=== PATIENT | female | born 1930 | race Caucasian/White ===

== ENCOUNTER 2018-07-27 15:15 | Emergency (ER) | payer MEDICARE, OTHER ==
[~2018-07-27 15:15] MED LIST: BETIMOL5 M1 OU; COMPLETE ALLERG25 MG PO; DIGOXIN125 MCG PO; DILTIAZEM ER240 MG PO; LEVOTHYROXINE125 MCG PO; SIMVASTATIN20 MG PO; SYNTHROID100 MCG PO; TOPROL XL25 MG PO; WARFARIN SODIUM1 MG PO; WARFARIN SODIUM5 MG PO
--- NOTE | 2018-07-28 16:08 | EKG ---
[facility] [address] [facility] [place], [place] [address] Signed Atrial fibrillation Right bundle branch block Abnormal ECG No previous ECGs available Confirmed by SHANNA SAAVEDRA DO ([id number]) on 07/28/2018 4:07:56 PM Electronically Signed By: SHANNA SAAVEDRA DO 07/28/18 1608 PATIENT NAME: JUWAN GOLDMANKAR WHITE Electrocardiogram DATE OF : 32 PHYSICIAN: SHANNA SAAVEDRA DO REPORT #: [id number] REPORT IS CONFIDENTIAL AND NOT TO BE RELEASED WITHOUT AUTHORIZATION
== END 2018-07-27 17:30 | disposition home or self-care (01) ==
LOC: ED 15:15
PROC: 0XQSXZZ Repair Right Ring Finger, External Approach (ICD-10-PCS; principal; 2018-07-27)
DX: S05.11XA Contusion of eyeball and orbital tissues, right eye, initial encounter (principal); S63.501A Unspecified sprain of right wrist, initial encounter; S66.911A Strain of unspecified muscle, fascia and tendon at wrist and hand level, right hand, initial encounter; Z79.01 Long term (current) use of anticoagulants; Z79.899 Other long term (current) drug therapy; W22.8XXA Striking against or struck by other objects, initial encounter
CPT/HCPCS: 12001; 70450; 73090; 80053; 82150; 82550; 83690; 85025; 85610; 85730; 86850; 86900; 86901; 93005; 93010; 99284-25; G0480

== ENCOUNTER 2018-07-28 17:59 | Emergency (ER) | payer MEDICARE, OTHER ==
[~2018-07-28] VITALS: Ht 157.5 cm; Wt 74.8 kg
--- OUTSIDE RECORDS SUMMARY | 2018-07-28 18:02 | XMS ---
PreManage Notification: [employer] Events No recent Security Events currently on file CRITERIA MET - [facility] - 2 Visits in 30 Days CARE PROVIDERS eVe Jonas Current PAC PHONE: Unknown Deepak has no Care Guidelines for this patient. EMilena VISIT COUNT (12 MO.) 2 [facility] TOTAL 2 NOTE: Visits indicate total known visits. ED/UCC VISIT TRACKING (12 MO.) 07/28/2018 17:59 [facility] TYPE: Emergency COMPLAINT: - FALL,HEAD INJURY 07/27/2018 15:15 [facility] TYPE: Emergency COMPLAINT: - FALL INPATIENT VISIT TRACKING (12 MO.) No inpatient visits to display in this time frame [email or web address]
== END 2018-07-28 19:08 | disposition home or self-care (01) ==
LOC: ED 17:59
DX: S60.041A Contusion of right ring finger without damage to nail, initial encounter (principal); W18.30XA Fall on same level, unspecified, initial encounter; I10 Essential (primary) hypertension; J44.9 Chronic obstructive pulmonary disease, unspecified; F17.220 Nicotine dependence, chewing tobacco, uncomplicated; Z88.7 Allergy status to serum and vaccine; Z79.899 Other long term (current) drug therapy; Z79.01 Long term (current) use of anticoagulants
CPT/HCPCS: 73140; 99283

== ENCOUNTER 2021-06-27 07:58 | Inpatient (IN) | payer MEDICARE, OTHER ==
[~2021-06-27] VITALS: Ht 157.5 cm; Wt 72.5 kg
[~2021-06-27 07:58] MED LIST changes: +MULTI VITAMIN1 EACH PO; -SYNTHROID100 MCG PO; +SYNTHROID112 MCG PO; +VITAMIN C500 M5 PO
--- NOTE | 2021-06-27 11:25 | NUR ---
89 YEAR OLD FEMALE PATIENT ADMITTED TO CCU UNDER DR. STRINGER VIA STRETCHER WITH DX OF CHF. PATIENT HAS BEEN GETTING MORE SHORT OF BREATH OVER THE LAST SEVERAL DAYS. LEGS ARE EDEMATOUS BILAT. DENIES PAIN. WAS ON BIPAP IN ER NOW ON O2 1 LITER. DENIES SHORTNESS OF BREATH NOW. WALKED FROM STRETCHER TO BED ON ADMIT. ADMISSION PROCESS STARTED.
[2021-06-27] MEDS ORDERED: METOPROLOL SUCC50 MG PO (11:58)
[2021-06-27] MEDS ORDERED: TIMOLOL MALEATE5 M2 OU (11:59)
--- NOTE | 2021-06-27 12:30 | NUR ---
SITTING AT BEDSIDE FOR LUNCH. HAS BEEN TO COMMODE TO VOID CLEAR YELLOW URINE.
--- NOTE | 2021-06-27 13:40 | NUR ---
IMAGING AT BEDSIDE NOW FOR ECHO.
--- NOTE | 2021-06-27 16:00 | NUR ---
NAPPING, WILL DO ASSESSMENT WHEN WAKES.
--- NOTE | 2021-06-27 16:33 | NUR ---
Medications reconciled using pharmacy records and patient interview
--- NOTE | 2021-06-27 17:00 | NUR ---
ASSESSMENT DONE. HAS PAIN IN LEFT HAND AND RIGHT SHOULDER. GENERALIZED BODY ACHE.
--- NOTE | 2021-06-27 17:20 | NUR ---
AFTER TAKING FEW BITES OF DINNER. LUÍS HAVING SEVERE COUGHING SPELL. PATIENT STATES THIS HAS BEEN HAPPENING AT HOME FOR SOMETIME.
--- NOTE | 2021-06-27 18:30 | NUR ---
TYLENOL 650 MG PO GIVEN FOR PAIN.
--- NOTE | 2021-06-27 18:50 | NUR ---
LOPRESSOR 5 MG IV GIVEN FOR HR >130. PATIENT HAS BEEN OUT STANDING AT BEDSIDE DUE TO DIFFICULTY SWALLOWING.
--- NOTE | 2021-06-27 19:00 | NUR ---
SITTING IN CHAIR STATES SHE FEELS BETTER DUE ABOUT HER SWALLOWING, COUGHING PROBLEMS. PATEINT HAS BEEN HAVING PROBLEMS WITH THIS SINCE SHE BEGAN EATING THIS EVENING. REPORT TO NEXT SHIFT.
--- NOTE | 2021-06-27 20:52 | NUR ---
Pt sitting up in bed up in bed awake and alert on room air. Pt denies shortness of breath at this time but reports nausea and a cough at this time. Vitals taken and PRN robitussin and zofran administered (see mar). pt assessment completed afterwards. pt alert and oriented x 3, pt lungs coarse throughout, pt denies shortness of breath but states she has a cough and reports that she has been having regurgitation/vomitting at home for 3 days. bowel tones active when assessed, no pain when palpated. Radial and pedal pulses strong, pt reports baseline numbness/tingling on her left hand. +1 edema noted in legs bilaterally. Pt reports no needs after assessment and is now resting in bed in watching tv. Bed in lowest position, call light in reach, will continue plan of care.
--- NOTE | 2021-06-27 21:35 | NUR ---
Pt used call light, pt stated she needed to void. pt able to stand up with minimal assistance and pivot to the bedside commode to void. Pt able to get back into bed without assistnace. Pt noted to desat to 86-88% while standing up but denied shortness of breath. Pt now resting in bed, spo2 96% on room air, call light in reach, bed in lowest position. pt reports no further needs at this time.
--- NOTE | 2021-06-27 22:56 | EKG ---
[facility] [address] [facility] [place] [address] Signed Ventricular-paced rhythm with occasional premature ventricular complexes Abnormal ECG When compared with ECG of 27-JUL-2018 15:37, Electronic ventricular pacemaker has replaced Atrial fibrillation Confirmed by NABIL STRINGER MD ([id number]) on 06/27/2021 10:56:23 PM Electronically Signed By: NABIL STRINGER MD 06/27/21 2256 PATIENT NAME: RYLEEHELENEALLEN Electrocardiogram DATE OF : 32 PHYSICIAN: NABIL TSRINGER MD REPORT #: [id number] REPORT IS CONFIDENTIAL AND NOT TO BE RELEASED WITHOUT AUTHORIZATION
--- NOTE | 2021-06-27 23:35 | NUR ---
CALL LIGHT USED, PT AWAKE AND ALERT IN BED ON ROOM AIR. PT REPORTED HAVING A HEADACHE AND BACK PAIN 07/20. PT REQUESTED PRN PAIN MEDICATION. PT NEEDED TO VOID FIRST AND WAS ABLE TO PIVOT TO THE BSC WITHOUT ASSISTANCE TO VOID. PT BACK IN BED AFTERWARDS. VITALS TAKEN (SEE CHART) AND PRN TYLENOL ADMINISTERED (SEE MAR). ASSESSMENT THEN COMPLETED (SEE CHART). LUNGS COARSE IN UPPER LOBES AND DIMINSISHED IN THE BASES. PT DENIES SHORTNESS OF BREATH WHEN ASKED. PT REPORTS NO FURTHER NEEDS AT THIS TIME, WARM BLANKET PROVIDED. PT STATES SHE WILL ATTEMPT TO GO TO SLEEP. CALL LIGHT IN REACH, BED IN LOWEST POSITION, WILL CONTINUE PLAN OF CARE.
--- NOTE | 2021-06-28 01:05 | NUR ---
PT USED CALL LIGHT PT LAYING IN BED AWAKE AND ALERT. PT STATED SHE COULDNT SLEEP AND FELT IF SHE WAS "FULL OF ENERGY AND NEEDED TO RUN". PT ASKED TO STAND AT THE BEDSIDE FOR A WHILE. PT ASSISTED UP AND STOOD FOR A FEW MINUTES STATING IT HELPED. PT NOW SITTING AT THE SIDE OF THE BED, A WARM BLANKET WAS PROVIDED. PT STATED SHE WANTS TO SIT AT THE SIDE OF THE BED FOR A WHILE. CALL LIGHT IN REACH, PT REPORTS NO FURTHER NEEDS AT THIS TIME, WILL CONTINUE PLAN OF CARE.
--- NOTE | 2021-06-28 01:52 | NUR ---
PT AWAKE AND ALERT SITTING AT THE SIDE OF THE BED STILL. PT REQUESTED PRN COUGH MEDICATION FOR A COUGH. PRN COUGH MEDICATION ADMINISTERED (SEE MAR). PT THEN GOT BACK INTO BED AND IS NOW LAYING ON HER SIDE. PT PROVIDED WITH WARM BLANKETS AT THIS TIME. PT REPORTS NO FURTHER NEEDS WHEN ASKED AND IS NOW RESTING IN BED. CALL LIGHT IN REACH, BED IN LOWEST POSITION, WILL CONTINUE PLAN OF CARE.
--- NOTE | 2021-06-28 02:30 | NUR ---
PT LAYING IN BED RESTING. PT NOTED TO DESAT TO 86-88% WHILE RESTING. PT AWAKE AND DENIES SHORTNESS OF BREATH. PT PLACED ON 2L O2 NC, SPO2 NOW AT 96-98%. PT REPORTS NO NEEDS, WILL CONTINUE PLAN OF CARE.
--- NOTE | 2021-06-28 04:51 | NUR ---
PT USED CALL LIGHT AT THIS TIME. PT AWAKE AND ALERT IN BED ON 2L O2 NC, SPO2 95%. PT STATED SHE NEEDED TO USE THE BEDSIDE COMMODE TO VOID. PT ABLE TO STAND UP AND PIVOT TO THE BSC, VOID, AND GET BACK INTO BED WITHOUT ASSISTANCE. PT NOW RESTING IN BED. VITALS TAKEN AND ASSESSMENT COMPLETED (SEE CHART). PT REPORTS NO FURTHER NEEDS AFTERWARDS AND IS NOW RESTING BACK ON HER SIDE. WARM BLANKETS AND WATER PROVIDED. CALL LIGHT IN REACH, WILL CONTINUE PLAN OF CARE. PT ON 2L O2 NC, SPO2 99%.
--- NOTE | 2021-06-28 06:52 | NUR ---
PT LAYING IN BED AWAKE ON 2L O2 NC. SCHEDULED LEVOTHYROXINE ADMINISTERED AT THIS TIME (SEE MAR). PT REPORTS NO FURTHER NEEDS, WILL CONTINUE PLAN OF CARE.
--- NOTE | 2021-06-28 07:15 | NUR ---
SHIFT REPORT RECEIVED.
--- NOTE | 2021-06-28 09:15 | NUR ---
REPORT RECEIVED BY JONATHAN RN AND PT. ARRIVED VIA CHAIR. SHE IS ALERT AND ORIENTED. ON TELEMETRY. DISCUSSED SAFETY AND POC. DENIES FURTHER NEEDS. LEFT RESTING WITH CALL LIGHT IN REACH.
--- NOTE | 2021-06-28 09:30 | NUR ---
ASSESSMENT COMPLETED. SCHEDULED MEDS PROVIDED. PT REPORTS 6/10 BACK PAIN, PRN PAIN MED PROVIDED. GCS 15, A&O X4. LUNGS COARSE IN ALL LOBES. ABD SOFT, NONTENDER, BOWEL TONES ACTIVE. CMS INTACT IN ALL EXCEPTS LEFT HAND FINGERS HAVE NUMBNESS AND TINGLING. SCAB ON RIGHT KNEE NOTED. IV WNL, FLUSHED WELL. HR 104, SINUS TACH. SPO2 96% ON RA. COFFEE PROVIDED. NO OTHER NEEDS. CALL LIGHT IN REACH.
--- NOTE | 2021-06-28 09:35 | NUR ---
PT MOVED TO MS RM 124.
--- NOTE | 2021-06-28 09:58 | NUR ---
Provided pt with soap and wash cloth to preform facial hygiene. Provided pt with toothbrush and toothpaste to preform oral hygiene. Pt preformed ADLs without assistance.
--- NOTE | 2021-06-28 11:40 | NUR ---
ASSISTED PT TO RESTROOM, STANDBY ASSIST. PT BACK TO RECLINER, WATCHING TV. DENIES NEEDS AT THIS TIME. INSTRUCTED TO USE CALL LIGHT FOR ASSISTANCE, WITHIN REACH.
--- NOTE | 2021-06-28 13:45 | NUR ---
IV IS LEAKING AND IS A FIELD START. IV REMOVED WITH CATH INTACT AND WNL. NEW IV STARTED WITH 2 ATTEMPTS. 20G L WRIST. PT. ASSISTED WITH REPOSITIONING. SHE C/O OF CHRONIC ACHES AND ASKS FOR PAIN MED WHEN AVAILABLE. PT. LEFT RESTING WITH CHAIR ALARM ON AND CALL LIGHT IN REACH.
--- NOTE | 2021-06-28 14:52 | NUR ---
PT C/0 GENERALIZED PAIN, TYLENOL GIVEN. DENIES FURTHER NEEDS AT THIS TIME. CALL LIGHT WITHIN REACH.
--- NOTE | 2021-06-28 19:50 | NUR ---
IN TO ASSIST PT WITH TOILETING NEEDS, SBA-INDPT TO BATHROOM, PT BRUSHED HER OWN TEETH, BACK TO THE CHAIR, PT INFORMED THIS GUEST RELATION OFFICER SHE IS AWAITING HER MEDS FROM THE RN, WILL SEND RN TO SEE PT, NO FURTHER NEEDS AT THIS TIME
--- NOTE | 2021-06-28 22:37 | NUR ---
PT CALLED REQUESTING COUGH MEDICATION, SHE COUGHED UP SOME YELLOW/UMANZOR PHLEM. WARM BLANKET PROVIDED. PT REPORTS BACK PAIN, OFFERED EGG CRATE MATTRESS TOP PT DECLINES AT THIS TIME. CALL LIGHT IS CLOSE.
--- NOTE | 2021-06-28 23:00 | NUR ---
PT HAS BEEN VERY RESTLESS AND IS HAVING DIFFICULTIY GETTING COMFORTABLE IN THE BED D/T BACK ISSUES. OFFERED MULTIPLE TIMES TO CALL PHYSICIAN FOR ANTIANXIETY OR SLEEP MED BUT PT REFUSED STATING SHE DOES NOT WANT TO TAKE ANY MEDICATION TO TRY TO HELP HER GET TO SLEEP. SPENT A SIGNIFICANT AMOUNT OF TIME ADJUSTING PILLOWS AROUND PT AND LISTENING TO HER CONCERNS. CALL LIGHT WITHIN REACH.
--- NOTE | 2021-06-29 00:39 | NUR ---
IN ROOM TO ASSIST PT TO RESTROOM, SHE VOIDED 100MLS AND SOME URINE MISSED THE HAT. PT CONTINUES TO COUGH UP PHE. BED ALARM IS ON AMD CALL LIGHT IS CLOSE.
--- NOTE | 2021-06-29 01:55 | NUR ---
IN TO ASSIST PT WITH TOILETING NEEDS, SBA TO TOILET AND THEN UP TO THE CHAIR, LEGS ELEVATED, ICE WATER PROVIDED, NO FURTHER NEEDS
--- NOTE | 2021-06-29 02:53 | NUR ---
appears asleep in recliner. No distress noted.
--- NOTE | 2021-06-29 07:25 | NUR ---
SPENT THE LAST SEVERAL HOURS UP IN THE CHAIR. TYLENOL GIVEN FOR C/O PAIN TO NECK AND BACK. ANOTHER DOSE OF COUGH MED GIVEN. CALL LIGHT WITHIN REACH
--- NOTE | 2021-06-29 07:50 | NUR ---
Pt ambulated to the bathroom with standby assist. Pt voided urine. Provided pt with wash cloth and soap to preform facial hygiene at the sink.
--- NOTE | 2021-06-29 08:22 | NUR ---
JACOBO ASSESSMENT COMPLETE. PT AWAKE IN RECLINER. MORNING MEDICATIONS GIVEN. PT DENIES NEEDS AT THIS TIME. CALL LIGHT WITHIN REACH.
--- NOTE | 2021-06-29 11:02 | NUR ---
PT AMBULATING UNIT WITH LIFE SKILLS COACH. HEART RATE 100-110'S. DENIES CHEST DISCOMFORT, DIZZINESS OR LIGHT HEADEDNESS. AMBULATED UNIT x3. BACK TO ROOM IN RECLINER. CALL LIGHT WITHIN REACH.
--- NOTE | 2021-06-29 12:40 | NUR ---
PT SITTING IN RECLINER HAVING DINNER, DENIES NEEDS AT THIS TIME. CALL LIGHT WITHIN REACH.
--- NOTE | 2021-06-29 14:21 | NUR ---
PT SITTING IN CHAIR, STATES SHE FEELS "UNCOMFORTABLE AND HOT" OFFERED ICE WATER, TURNED HEAT DOWN IN ROOM. PT DENIES FURTHER NEEDS AT THIS TIME. CALL LIGHT WITHIN REACH.
--- NOTE | 2021-06-29 16:22 | NUR ---
PT EXPRESSED FRUSTRATION WITH MEDICATION CHANGES AND THAT SHE DID NOT UNDERSTAND CHANGES, PT APPEARED VERY UPSET. EXPLAINED MEDICATION CHANGES, CURRENT ILLNESS AND LAB VALUES. PT VERBALIZES SOME UNDERSTANDING AT THIS TIME AND STATES FEELING LESS FRUSTRATED. DENIES FURTHER NEEDS AT THIS TIME. CALL LIGHT WITHIN REACH.
--- NOTE | 2021-06-29 17:48 | NUR ---
CLARIFIED WITH DR ESPINOSA HYPERTONIC SALINE SHOULD RUN AT 25MLS/HR UNTIL 2029, BMP LAB DRAW AT 2100.
--- NOTE | 2021-06-29 18:38 | NUR ---
PT SITTING IN CHAIR, REFUSES TO EAT DINNER AT THIS TIME. DENIES ANY NEEDS AT THIS TIME. CALL LIGHT WITHIN REACH.
--- NOTE | 2021-06-30 01:41 | NUR ---
UP TO BR TO HAVE A BM. CURRENTLY SITTING ON EDGE OF BED. DISCUSSING PT NEEDS.
--- NOTE | 2021-06-30 05:22 | NUR ---
NEW IV STARTED IN LEFT FOREARM. FLUID INFUSING. pt SITTING IN THE CHAIR. CALL LIGHT WITHIN REACH.
--- NOTE | 2021-06-30 06:14 | NUR ---
HAS NOT SLEPT WELL THIS SHIFT. DIFFICULT TO GET COMFORTABLE. DOES NOT LIKE THE BED AND ALSO EXPERIENCES CHRONIC PAIN TO BACK, NECK, AND LH AND WRIST. FELT BLOATED AT THE BEGINNING OF THE SHIFT. THAT HAS SINCE RESOLVED AND SHE HAS HAD MULTIPLE LOOSE BM's. HR HAS BEEN IN THE 70'S FOR THE LAST SEVERAL HOURS.
--- NOTE | 2021-06-30 08:00 | NUR ---
Report received from energy infrastructure engineer RN. Pt resting in chair at bedside with call light at hand and appears comfortable. No distress noted. Will cont to monitor.
--- NOTE | 2021-06-30 08:15 | NUR ---
PT UP TO BR, SBA AND BACK TO CHAIR. BREAKFAST PROVIDED. NO OTHER NEEDS AT THIS TIME. CALL LIGHT IN REACH.
--- NOTE | 2021-06-30 10:00 | NUR ---
Pt alert and oriented. Ambulating to BR with SBA. Uses call light appropriately. C/O shoulder pain- see emar for PRNs. New orders received. Tele D/Cd. Tolerating iv fluids. Call light within reach. Will cont to monitor.
--- NOTE | 2021-06-30 13:59 | NUR ---
Pt is resting in her chair at bedside after getting up to the BR with SBA. Appears comfortable at this time. Tolerating iv fluids as ordered. Call light within reach. VSS. Will cont to monitor.
--- NOTE | 2021-06-30 15:28 | NUR ---
SCHEDULED MED PROVIDED. NO OTHER NEEDS AT THIS TIME. CALL LIGHT IN REACH.
--- NOTE | 2021-06-30 16:51 | NUR ---
Pt up to BR with SBA. VSS. Pt remains on RA with no resp distress noted. C/O cough; prn administered- see emar for admin info. Denies pain at this time. Verbalizes needs appropriately. Call light within reach. Will cont to monitor.
--- NOTE | 2021-06-30 18:55 | NUR ---
speech language assistant relayed message to this RN that lab was unable to obtain scheduled labs and asked this RN to draw labs. Labs drawn and tubed to lab. Call light within reach. Will cont to monitor.
--- NOTE | 2021-06-30 19:34 | NUR ---
Patient sitting up in chair watching tv, no distress. IV site patent, fluids infusing per provider order. Patient denies discomfort and or needs at this time. Personal supplies and call light within reach.
--- NOTE | 2021-06-30 20:03 | NUR ---
Updated board. Patient sitting up in chair on the phone, no notable distress. Call light within reach.
--- NOTE | 2021-06-30 20:32 | NUR ---
Tylenol 650mg po admin for reports of 5/10 right shoulder pain. Patient reports pain is chronic from a fall last year.
--- NOTE | 2021-06-30 22:49 | NUR ---
Patient in bed resting, no distress. Patient is on room air, respirations even and non labored. Call light within reach.
--- NOTE | 2021-06-30 23:30 | NUR ---
Rolando CH admin for reports of cough.
--- NOTE | 2021-07-01 01:35 | NUR ---
Patient in bed resting, respirations are even and non labored. No needs at this time. Call light within reach.
--- NOTE | 2021-07-01 02:26 | NUR ---
Tylenol 650mg po and nicorette lozenge admin for pt request.
--- NOTE | 2021-07-01 07:12 | NUR ---
REPORT RECEIVED FROM ALYSHA LEY. PT RESTING IN BED WITH HEAD OF BED ELEVATED TO 30 DEGREES. PT REPORTS RIGHT SHOULDER PAIN THAT IS "NOT THAT BAD" RATES PAIN AT 3/10 AND DENIES NEED FOR ADDITIONAL PAIN MEDICATION AT THIS TIME. PT REPORTS NICOTENE CRAVINGS. NO ADDITIONAL REQUESTS OR COMPLAINTS. VITAL SIGNS STABLE. CALL LIGHT WITHIN REACH. BED RAILS UP.
--- NOTE | 2021-07-01 07:29 | NUR ---
MORNING ASSESSMENT AND MEDICATIONS DUE. PT CALL LIGHT ON. PT REQUESTS ASSISTANCE UP TO THE RESTROOM. STAND BY ASSIST UP TO RESTROOM. PT VOIDS 200ML CLEAR YELLOW URINE AND PERFORMS SELF VENKAT CARE. PT UP TO SKIN FOR MORNING CARES. PT BRUSHES TEETH, WASHES FACE/HANDS, SKIN, AND DOES OTHER CARES INDEPENDANTLY. LINENS CHANGED. PT UP TO CHAIR FOR BREAKFAST. PT CONTINUES TO REPORTS 3/10 PAIN IN RIGHT SHOULDER/BACK. PT ALERT AND ORIENTED TO ALL AND RESPONDIGN TO QUESTIONS APPROPRIATLY. LUNG SOUDNS CORSE, CLEARS WITH COUGH TO CLEAR LUNG SOUNDS. PT TOELRATING ROOM AIR. RR INCRASES TO 20 WITH ACTIVITY. COUGH CONTINUES WITH CULLEN SPUTUM. HORSE VOICE NOTED, PT ATTRIBUTES TO SMOKING. FAINT PULSES NOTED TO BLE, DISCOLORATION NOTED WELL, PT ATTRIBUTES TO "POOR CIRCULATION." PT REPORTS EDEMA TO BLE IS "SO MUCH BETTER THAN BEFORE. i COULDN'T GET ANY SHOES ON BEFORE AND NOW THEY LOOK FINE." +1 PITTING EDEMA NOTED TO BLE AT THIS TIME, SOCK IMPRENTS SEEN. BOWEL TONES ACTIVE. PT REPORTS DIARRHEA YESTERDAY AND DECLINES BOWEL MEDICAITONS. BOWEL TONES ACTIVE. LARGE PURPLE AREAS NTOED TO BACK OF LEGS, PT REPORTS THIS IS "POOR CIRCULATION" NOT BURSINING. PT REMAINS UP TO CHAIR. NO ADDITIONAL NEEDS AT THSI TIME. CALL LIGHT WITHIN REACH.
--- NOTE | 2021-07-01 08:56 | NUR ---
THIS RN TO ROOM TO CHECK ONPT. PT REMAINS UP TO CHAIR, EATING BREAKFAST. PT DENIES REQUESTS OR COMPLAINTS OR FEELINGS OF SHORTNESS OF BREATH. PT ENCORUAGED TO CALL IF SHE NEEDS ANYTHING. CALL LIGHT WITHIN REACH. CHAIR ALARM ON.
--- NOTE | 2021-07-01 09:28 | NUR ---
PATIENT IN CHAIR AFTER GOING TO BATHROOM. PATIENT GIVEN TYLENOL FOR 6/10 SHOULDER/BACK PAIN.
--- NOTE | 2021-07-01 09:56 | NUR ---
PT CALL LIGHT ON. PT REQUESTS ASSISTANCE UP TO THE RESTROOM. STAND BY ASSIST UP TO RESTROOM. PT VOIDS AND HAS SMALL LOOSE BOWEL MOVEMENT. PT PERFORMS SELF VENKAT CARE. STAND BY ASSIST BACK TO CHAIR. PT REPORTS PAIN IS IMPROVING, NOW 06/19. PT DENIES ADDITONAL REQUESTS OR COMPLAINTS. CALL ILT WITHIN REACH. CHAIR ALARM ON.
--- NOTE | 2021-07-01 11:32 | NUR ---
THIS RN TO ROOM TO CHECK ON PT. PT RESTING IN CHAIR TALKING WITH SON ON THE PHONE. PT AGITATED AND WANTING TO GO HOME. PT STATES "I JUST DON'T UNDERSTAND ANY OF THIS. HOW LONG IS IT GOING TO TAKE!?!" EDUCATION DONE WITH WITH PT REGARDING DIAGNOSIS AND PLAN OF CARE. PT VERBALIZES UNDERSTANDING AND STATES HER QUESTIONS HAVE BEEN ANSWERED. PT ASKED ABOUT HER PAIN AND STATES "STOP ASKING ME ABOUT THE PAIN, IT'S ALWAYS THE SAME. THE TYELNOL HELPS." PT RATES PAIN AT 5/10. NO ADDITIONAL NEEDS AT THIS TIME. CALL LIGHT WITHIN REACH. PT REMAINS UP TO CHAIR. PT REQUESTS SON BE CALLED AND UPDATED.
--- NOTE | 2021-07-01 11:50 | NUR ---
CALL PLACED TO PTS SON, VADIM. VADIM UPDATED ON PTS STATUS AND PLAN OF CARE. VADIM VERBALIZES UNDERSTANDING OF PLAN OF CARE AND STATES HIS QUESITONS HAVE BEEN ANSWERED. CALL FORWARED INTO PTS ROOM. PT TALKING TO SON ON PHONE. NO ADDITIONAL NEEDS. CALL LIGHT WITHIN REACH.
--- NOTE | 2021-07-01 12:24 | NUR ---
THIS RN TO ROOM TO CHECK ON PT. PT CONTINUES TO BE AGITATED STATING "I JUST NEED TO GO OUT AND SMOKE OR SOMETHING, I CAN'T STAY HERE." SARAHI COREAS PROVIDED. PT UP TO SUBWAY CAR REPAIRER ROOM. DIFFERENT LUNCH ORDER PLACED PER PT PREFERENCE. DELIVERED. PT BACK TO CHAIR AND EATING LUNCH. PT SEEMS TO CALM. NO ADDITONAL REQUESTS OR COMPLAINTS. CALL LIGHT WITHIN REACH. CHAIR ALARM ON.
--- NOTE | 2021-07-01 13:26 | NUR ---
AFTERNOON ASSESSMENT DUE. THIS RN TO ROOM. IV PUMP ALARMING, IV FLUID BAG COMPLETE. NEW IV FLUID BAG HUNG. PT REPORTS /10 PAIN IN RIGHT SHOUDER BLADE. STATING "RIGHT NOW IT FEELS PRETTY GOOD." PT DENIES NEEDS FOR ADDITIONAL PAIN MEDICATION. HEAT PACK OFFERED, DECLINED. PT REMAINS ALERT AND ORIENTED TO ALL. PT REMAINS STAND BY ASSIT, IMPULSIVE BUT GENERALLY STEADY ON FEET. PT LESS AXIOUS AT THIS TIME. PT REPORTS "I HAVE THE LOZANGE THING YOU GAVE ME IN MY CHEEK." PT RPEORTS NICOTENE IS HELPING. CORSE UPPER LUNG SOUNDS NOTED, CLEARS SOMEWHAT WITH COUGH.CULLEN SPUTUM CONTINUES. EDEMA UNCHANGED. DIARRHEA CONTINUES. BOWEL TONES HYPERACTIVE, LOOSE AND BROWN. BRUISES UNCHANGED TO BACK OF LEGS. FALL PRECAUTIONS REVIEWED WITH PT. PT VERBALIZES UNDERSTANDING AND STATES SHE WILL CALL WHEN GETTING UP. NO ADDITONAL NEEDS AT THIS TIME. CALL LIGHT WITHIN REACH.
--- NOTE | 2021-07-01 15:34 | NUR ---
THIS RN TO ROOM WITH MD FOR ROUNDS. PT REMAINS UP TO CHAIR. PT IS VERY AGITATED AT THIS TIME AND ANGRY ABOUT SITUATION. PT STATES SHE WAS COMFORTABLY RESTING IN CHAIR WHEN SHE HAD TO PEE AND NOW SHE CANNOT GET COMFORTABLE. PT FIXATED ON THIS ISSUE AND UNABLE TO MOVE ON FROM SUBJECT. PT DECLINES ALL HELP WITH GETTING COMFORTABLE. PLAN OF CARE REVIEWED WITH PT BY MD. PT CONTINUES TO FIXATE ON PREVIOUS SITUATION AND IS VERY AGIATED WITH ANY ATTEMPT TO ASSIST PT. EDISON COREAS OFFERED AND ACCEPTED. PT REPORTS 5/10 BACK AND SHOULDER PAIN. SEE MAR FOR MEDICATION GIVEN. NO ADDITONAL NEEDS AT THIS TIME. PT CONTINUES TRYING TO POSITION SELF IN CHAIR, DECLINES ALL ATTEMPTS TO HELP. PT ALLOWED TO REST. CALL LIGHT WITHIN REACH.
--- NOTE | 2021-07-01 16:17 | NUR ---
MEDICATION DUE. THIS RN TO ROOM. PT RESTING IN CHAIR. LESS AGITATED BUT CONTINUES TO FIXATE ON NOT BEING ABLE TO SLEEP COMFORTABLY. PT CONTINUES TO DECLINE ASSISTANCE WITH REPOSITIONING. PT REPORTS "I HAVE NO PAIN AT ALL IN MY BACK RIGHT NOW, IT'S JUST MY HAND, I JUST WANT TO CUT IT OFF RIGHT NOW." PT DECLIENS ALL INTERVENTIONS OFFERED INCLUDING REPOSITOINING, MEDICATION, HEAT/COLD PACKS. PT CONTINUES RESTING IN CHAIR. CALL LIGHT WITHIN REACH. NO ADDITIONAL NEEDS.
--- NOTE | 2021-07-01 16:59 | NUR ---
PT HERE FOR POSSIBLE CHF. PT UP WITH STAND BY ASSIST TO CHAIR AND RESTROOM THIS SHIFT. PT DECLINES AMBULATION IN DERAS. PT TOLERATING REGULAR DIET WITH MODERATE APPITITE. PT AGITATED FREQUENTLY THIS SHIFT, IMPROVES WITH NICOTENE LOZANGMARAL. PT ALERT AND ORIENTED. HEART TONES REGULAR. CORSE LUNG SOUNDS AT TIMES, OCCATIONAL CLEARING WITH COUGH. ANTICIPATING SWALLOW EVALUATION TOMORROW. DIARRHEA NOTED THIS SHIFT, PT ATTRIBUTES TO STOOL SOFTEN MEDICATIONS GIVEN PREVIOUSLY. PRN TYELNOL GIVEN FOR RIGHT SHOULDER AND BAKC PAIN. PT VOIDING QUANTITY SUFFICIENT. PT USES CALL LIGHT AND MAKES NEEDS KNOWN.
--- NOTE | 2021-07-01 17:31 | NUR ---
THIS RN TO ROOM TO CHECK ON PT. PT EATING SMALL BITES OF DINNER. PT REPORTS PAIN IS "FINE" AND DECLINES ADDITONAL INTERVENTIONS. PT ENCOAURGED TO AMBULATE AFTER DINNER AND STATES "YEAH, MAYBE." PT DENIES ADDITIONAL REQUESTS OR COMPLAINTS. CALL LIGHT WITHIN REACH. BED RAILS UP.
--- NOTE | 2021-07-01 18:46 | NUR ---
THIS RN TO ROOM TO CHECK ON PT. PT REQUESTS ADDTIONAL SARAHI COREAS. PT ASSITED WITH FINDING HER CHANNELS ON TV. PT REMAINS UP TO CHAIR. LABS DUE. LAB CALLED, NO ANSWER. 4ML LAB DRAW FROM RIGHT HAND WITH 18 GAUGE BUTTER FLY NEEDLE. GAUZE AND COBAN APPLIED. PT TOELRATED WELL. PT DENIES ADDITIONAL REQUESTS OR COMPLAINTS AT THIS TIME. CALL LIGHT WITHIN REACH.
--- NOTE | 2021-07-01 19:24 | NUR ---
REPORT RECEIVED FROM DAY SHIFT RN. PT SITTING IN RECLINER ALERT AND ORIENTED. DENIES NEEDS. WHITE BOARD UPDATED. CALL LIGHT IN REACH.
--- NOTE | 2021-07-01 19:48 | NUR ---
ANSWERED CALL LIGHT. PATIENT WAS UP TO THE BATHROOM. OFFERED WALKER PATIENT STATED NO I DON NOT NEED IT. PATIENT STATED I DO NOT WANT ROOM DOOR, BATHROOM DOOR AND CURTAIN CLOSED. I DO NOT CARE IF PEOPLE WILL SEE MYSELF, THEY LOOK WHAT THEY WANT. PATIENT IS BACK IN CHAIR. NO FURTHER NEEDS AT THIS TIME. CALL IN REACH.
--- NOTE | 2021-07-01 21:10 | NUR ---
IN TO DC IVF ORDERED. PT BECAME AGITATED, CONCERNED ABOUT SODIUM LEVELS. DR. ESPINOSA CALLED TO DISCUSS PLAN OF CARE.
--- NOTE | 2021-07-01 21:30 | NUR ---
PT CALLED, SBA UP TO BATHROOM, URINE SAMPLE COLLECTED, PT BACK TO HER RECLINER CHAIR, FRESH ICE WATER GIVEN, FRESH PT GARBAGE BAG GIVEN, GARBAGE EMPTIED. PT CONCERNED ABOUT WHY THE IV FLUIDS WERE STOPPED, CONCERNED ABOUT SODIUM LEVEL. EXPLAINED DR ESPINOSA WAS AWARE, AND HE WILL RECHECK LEVELS IN THE AM.
--- NOTE | 2021-07-01 22:07 | NUR ---
BACK TO CHAIR, FROM USING BATHROOM, MEASURED AND UNMEASURED VOID. BACK TO CHAIR AFTER WASHING HANDS AND FACE. CALL LIGHT WITHIN REACH, CHAIR ALARM ON. ALL NEEDS WITHIN REACH.
--- NOTE | 2021-07-01 22:44 | NUR ---
EVENING ASSESSMENT COMPLETE. SCHEDULED MEDS ADMIN PER EMAR. PT REPORTS CHRONIC PAIN IN LEFT HAND 06/19. PRN FOR PAIN ADMIN PER EMAR. LOOSE COUGH NOTED. PRN COUGH SYRUP GIVEN. PT DENIES SOB. SpO2 97% ON RA. RESPIRATIONS EVEN. PT SITTING IN RECLINER, LEGS ELEVATED. VS AND I&O COMPLETE. NO FURTHER NEEDS AT THIS TIME. CALL LIGHT IN REACH.
--- NOTE | 2021-07-01 22:52 | NUR ---
CALL LIGHT ANSWERED. SBA. PATIENT WAS UP TO THE BATHROOM AND VOIDED 275 ML. PATIENT IS BACK IN CHAIR. CALL LIGHT WITHIN REACH. NO OTHER NEEDS AT THIS TIME.
--- NOTE | 2021-07-02 00:57 | NUR ---
PT RESTING IN RECLINER WITH EYES CLOSED. FEET ELEVATED. RESPIRATIONS EVEN. CALL LIGHT IN REACH.
--- NOTE | 2021-07-02 01:24 | NUR ---
PATIENT CALLED TO USE THE BATHROOM. SBA. PATIENT DECIDED TO GO TO BED. CALL LIGHT WITHIN REACH. ICE WATER REFILLED. NO OTHER NEEDS AT THIS TIME.
--- NOTE | 2021-07-02 04:31 | NUR ---
CALL LIGHT ANSWERED. SBA TO BR TO VOID. GAIT STEADY. AT SINK TO WASH HANDS. BACK TO BED, EJN WELL. PT REPORTS MORE PRODUCTIVE COUGH THIS LAST HOUR. DENIES SOB. PT REPORTS LEFT HAND/BACK PAIN /. PRN FOR PAIN AND COUGH ADMIN PER EMAR. FRESH WATER PROVIDED. PT DENIES FURTHER NEEDS. CALL LIGHT IN REACH.
--- NOTE | 2021-07-02 06:14 | NUR ---
CALL LIGHT ON. pt REQUESTED ASSISTANCE TO BATHROOM. SMALL VOID, LIGHT YELLOW URINE. NO BM, PASSED GAS. pt INDEPENDENT BACK TO BED. SITTING ON THE SIDE OF THE BED. POSSESSIONS AND CALL LIGHT WITHIN REACH.
--- NOTE | 2021-07-02 07:28 | NUR ---
Patient in bed resting, eyes closed, respirations even and non labored. Patient has no current needs at this time. Personal supllies and call light within reach.
--- NOTE | 2021-07-02 08:38 | NUR ---
PATIENT SITTING UP IN EDGE OF BED EATING BREAKFAST AT THIS TIME. CALL LIGHT IN REACH. NO FURTHER NEEDS AT THIS TIME.
--- NOTE | 2021-07-02 08:55 | NUR ---
Patient sitting up on edge of bed eating breakfast, no distress. Patient anxious, she is worried about her sodium levels. Patient reports she feels better now than she did when admitted to hospital. Educated patient regarding her labs, medications and water intake, patient somewhat receptive to listening to me. Patient denies pain at this time. Nicotine patch placed per order. Patient encouraged to relax and finish eating her breakfast. Patient has call light next to her.
--- NOTE | 2021-07-02 10:47 | NUR ---
IN TO CHECK ON PATIENT. PATIENT SITTING ON EDGE OF BED. VITALS AND I&O'S DONE BY RN. CALL LIGHT IN REACH. NO FURTHER NEEDS AT THIS TIME.
--- NOTE | 2021-07-02 10:56 | NUR ---
ADDRESSED PT ABOUT A SHOWER, PT VERY WORKED UP ABOUT HER HOSPITAL STAY, CONCERNED ABOUT EYE DROPS AND WHEN SHE WILL SEE THE DOCTOR AND GO HOME. PT STATES SHE WANTS A SHOWER, BUT DOESN'T WANT TO RISK MISSING THE DOCTOR. THIS CURATOR [employer] REMINDED PT THAT SHE CAN SHOWER WHENEVER SHE WANTS AND TO LET US KNOW IF SHE CHANGES HER MINDS. PT APPEARED CALMED DOWN. CALL LIGHT WITHIN REACH, NO FURTHER ASSISTANCE NEEDED AT THIS TIME.
[2021-07-02] MEDS ORDERED: METOPROLOL SUCC50 MG PO (12:37)
[2021-07-02] MEDS ORDERED: LEVOTHYROXINE125 MCG PO (12:38)
[2021-07-02] MEDS ORDERED: NICOTINE1 EAC2 TD (12:40)
--- NOTE | 2021-07-02 13:19 | NUR ---
PT SITTING ON SIDE OF BED-NOT QUITE READY TO GET UP YET. PT VERY DISTRAUGHT, FELT SHE HAD BEEN GIVEN BAD NEWS AND WAS WAITING FOR DR ESPINOSA TO GIVE HER MORE. PT AGREED TO HAVE FOUNDRY TECHNICIAN VISIT-FOR JUST PRAYER AND BLESSING. DID NOT WANT TO TALK TO ANYONE, PT FEELS IT IS TOO DEPRESSING FOR HER. INFORMED FR COTTRELL TO SEE ALYSHA CASILLAS BEFORE VISITING. SHE WILL INFORM . GAVE BLESSING AND WILL FOLLOW
[2021-07-04] MEDS ORDERED: IPRAT-ALBUT 0.5-3 ML INH (12:38)
[2021-07-04] MEDS ORDERED: PREDNISONE20 MG PO (12:38)
[2021-07-04] MEDS ORDERED: NEBULIZER UNIT XX (12:40)
[2021-07-04] MEDS ORDERED: AZITHROMYCIN500 MG PO (12:41)
== END 2021-07-02 13:46 | disposition home or self-care (01) | DRG 191 ==
LOC: ED 07:58 → MS 10:34 → CCU 10:34 → MS 06-28 09:15
PROVIDERS: ADMIT Internal Medicine; ATTEND Internal Medicine
PROC: 5A09357 Assistance with Respiratory Ventilation, Less than 24 Consecutive Hours, Continuous Positive Airway Pressure (ICD-10-PCS; principal; 2021-06-27)
DX: J44.1 Chronic obstructive pulmonary disease with (acute) exacerbation (principal); E87.1 Hypo-osmolality and hyponatremia; I48.20 Chronic atrial fibrillation, unspecified; Z20.822 Contact with and (suspected) exposure to COVID-19; E03.8 Other specified hypothyroidism; R13.12 Dysphagia, oropharyngeal phase; T50.2X5A Adverse effect of carbonic-anhydrase inhibitors, benzothiadiazides and other diuretics, initial encounter; E78.5 Hyperlipidemia, unspecified; H40.9 Unspecified glaucoma; I12.9 Hypertensive chronic kidney disease with stage 1 through stage 4 chronic kidney disease, or unspecified chronic kidney disease; N18.32 Chronic kidney disease, stage 3b; Z96.642 Presence of left artificial hip joint; F17.210 Nicotine dependence, cigarettes, uncomplicated; Z95.0 Presence of cardiac pacemaker; Z90.710 Acquired absence of both cervix and uterus; Z88.7 Allergy status to serum and vaccine; Z79.01 Long term (current) use of anticoagulants; Z79.899 Other long term (current) drug therapy
CPT/HCPCS: 36415; 71045; 80048; 80053; 80061; 82533; 82803; 83735; 83880; 84439; 84443; 84484; 84550; 85025; 85610; 87502; 93005; 93010; 93306; 96374; 96375; 99285-25; A9270; C9803; J1940; J2405; J7030; J7131; U0003

== ENCOUNTER 2021-07-06 17:49 | Inpatient (IN) | payer MEDICARE, OTHER ==
[~2021-07-06] VITALS: Ht 157.5 cm; Wt 74.5 kg
[~2021-07-06 17:49] MED LIST changes: +AZITHROMYCIN500 MG PO; +IPRAT-ALBUT 0.5-3 ML INH; +METOPROLOL SUCC50 MG PO; +NEBULIZER UNIT XX; +NICOTINE1 EAC2 TD; +PREDNISONE20 MG PO; +TIMOLOL MALEATE5 M2 OU
--- OUTSIDE RECORDS SUMMARY | 2021-07-06 17:56 | XMS ---
PreManage Notification: ALLEN GOLDMAN Security Room Service Server Events No recent Security Events currently on file CRITERIA MET - [facility] - 2 Visits in 30 Days CARE PROVIDERS AKILAH MORRISON Physician Hearing Aid Assembly Supervisor 07/29/2018-Current PHONE: Unknown Deepak has no Care Guidelines for this patient. Care History Medical/Surgical 07/29/2018 [facility] [place] - PATIENT HAS A FOLLOW UP APT WITH DR MORRISON ON 08/06/18. - CHW CONTACTED PATIENT DUE TO FALL RISK- PATIENT CURRENTLY LIVES ALONE AND DOES NOT HAVE FAMILY IN THE AREA. - CHW DISCUSSED RESOURCES AND PATIENT HAS DECLINED IN HOME SERVICES/RESOURCES AT THIS TIME BUT WILL THINK ABOUT IT IN THE FUTURE. - CHW PROVIDED PATIENT WITH CHW CELL PHONE NUMBER FOR FURTHER CONTACT. E.D. VISIT COUNT (12 MO.) 3 [facility] TOTAL 3 NOTE: Visits indicate total known visits. ED/UCC VISIT TRACKING (12 MO.) 07/06/2021 17:50 [facility] TYPE: Emergency COMPLAINT: - SWOOLEN LEGS 07/02/2021 21:06 [facility] TYPE: Emergency COMPLAINT: - DIFFICULTY BREATHING 06/27/2021 07:59 [facility] TYPE: Emergency COMPLAINT: - DIFFICULTY BREATHING INPATIENT VISIT TRACKING (12 MO.) 07/02/2021 21:07 [facility] TYPE: Observation COMPLAINT: - DYSPNEA, HYPONATREMIA DIAGNOSES: - Presence of right artificial hip joint - Contact with and (suspected) exposure to COVID-19 - Shortness of breath - group home (current) use of anticoagulants - Essential (primary) hypertension - Chronic atrial fibrillation, unspecified - Hypothyroidism, unspecified - Unspecified chronic bronchitis - Presence of cardiac pacemaker - Allergy status to serum and vaccine - Hypo-osmolality and hyponatremia - Syndrome of inappropriate secretion of antidiuretic hormone - Nicotine dependence, cigarettes, uncomplicated - Hyperlipidemia, unspecified 06/27/2021 10:34 [facility] TYPE: Medical Surgical COMPLAINT: - PROBABLE ACUTE SYSTOLIC CHF DIAGNOSES: - Other specified hypothyroidism - Other halfway (current) drug therapy - Hyperlipidemia, unspecified - Contact with and (suspected) exposure to COVID-19 - Unspecified glaucoma - Chronic atrial fibrillation, unspecified - Dysphagia, oropharyngeal phase - intermediate manager (current) use of anticoagulants - Hyperlipidemia, unspecified - Other machine long goods helper (current) drug therapy - Presence of cardiac pacemaker - Hypertensive chronic kidney disease with stage 1 through stage 4 chronic kidney disease, or unspecified chronic kidney disease - Allergy status to serum and vaccine - group home (current) use of anticoagulants - Acquired absence of both cervix and uterus - Presence of left artificial hip joint - Chronic obstructive pulmonary disease with (acute) exacerbation - Nicotine dependence, cigarettes, uncomplicated - Acquired absence of both cervix and uterus - Adverse effect of carbonic-anhydrase inhibitors, benzothiadiazides and other diuretics, initial encounter - Shortness of breath - Chronic kidney disease, stage 3b - Adverse effect of carbonic-anhydrase inhibitors, benzothiadiazides and other diuretics, initial encounter - Allergy status to serum and vaccine - Chronic obstructive pulmonary disease with (acute) exacerbation - Contact with and (suspected) exposure to COVID-19 - Hypertensive chronic kidney disease with stage 1 through stage 4 chronic kidney disease, or unspecified chronic kidney disease - Hypo-osmolality and hyponatremia - Nicotine dependence, cigarettes, uncomplicated - Presence of left artificial hip joint - Other specified hypothyroidism - Dysphagia, oropharyngeal phase - Presence of cardiac pacemaker - Unspecified glaucoma - Chronic kidney disease, stage 3b - Hypo-osmolality and hyponatremia - Chronic atrial fibrillation, unspecified [email or web address]
--- NOTE | 2021-07-06 20:10 | NUR ---
PT ADMITTED TO ROOM 127 FOR SEVERE HYPONATREMIA. PT ALERT AND ORIENTED, UP TO VOID THEN INTO BED WIHT SBA. DENIES PAIN/NEEDS AT THIS TIME.
--- NOTE | 2021-07-06 22:55 | NUR ---
TECHNICAL SALES SPECIALIST IN TO DO R/O DVT ON LEGS.
--- NOTE | 2021-07-06 23:38 | NUR ---
PT ASSISTED UP TO SIT ON BSC WITH CALL LIGHT IN REACH.
--- NOTE | 2021-07-07 02:54 | NUR ---
CRITICAL LAB VALUE RECEIVED FROM LAB, SODIUM 116, DR ESPINOSA CALLED AND UPDATED AND ORDER GIVEN TO CONTINUE 3% NS AT 22ML/HR.
--- NOTE | 2021-07-07 04:03 | NUR ---
IN TO DO ASSESSMENT, PT SITTING UP IN BED WITH EYES CLOSED. LUNG SOUNDS UNCHANGED. HR 70'S. PT HAS OCCASIONAL LOOSE SOUNDING COUGH.
--- NOTE | 2021-07-07 04:51 | NUR ---
IN TO CHECK ON IV PUMP ALARMING, PT AWAKE, STATES HE BACK AND NECK HAVE BEEN HURTING, THIS IS A CHRONIC PAIN FOR HER AND IS REQUESTING A PAIN MEDICATION PRN TYLENOL GIVEN. PT UP TO BSC WITH CALL LIGHT IN REACH.
--- NOTE | 2021-07-07 05:30 | NUR ---
PT BACK TO BED WITH ASSIST, CALL LIGHT IN HAND.SP2 90'S ROOM AIR, RR 12 AND HR 70'S PACED.
--- NOTE | 2021-07-07 08:46 | NUR ---
IN PATIENT'S ROOM FOR RACKET STRINGER. PT SITTING ON COMMODE AND VERY UPSET ABOUT HER DRY MOUTH, HER LACK OF WATER, AND THE ENTIRE SITUATION. PT EXPRESSING THESE FRUSTRATIONS QUITE LOUDLY. DISCUSSED WITH PATIENT HER CURRENT DIAGNOSIS OF HYPONATREMIA, AND NECESSITY OF FLUID RESTRICITON. PT FRUSTRATED BY THIS. LAB DRAW PENDING. PT WANTING TO CONTINUE TO SIT ON COMMODE SHE STATES SHE IS "DRIBBLING PEE." LUNGS ARE CLEAR TO AUSCULTATION. PT IS ALERT AND ORIENTED X4. HR IN THE 70-80s, AFIB OR PACED. DISCUSSED PLAN OF CARE WITH PATIENT. WILL CONTINUE TO MONITOR.
--- NOTE | 2021-07-07 09:17 | NUR ---
DR. ESPINOSA IN ROOM TO SEE PATIENT AT THIS TIME. PT STATES, "I'M SO DRY. MY BREATHING IS SLIGHTLY BETTER, BUT I'M SO DRY, I'M MISERABLE." PLAN OF CARE DISCUSSED WITH PATIENT. SODIUM LEVEL 123 AT THE 0800 LAB DRAW. CONTINUE TO MONITOR.
--- NOTE | 2021-07-07 11:02 | NUR ---
3% SALINE WAS HELD AFTER DR. ESPINOSA ROUNDED ON PATIENT THIS AM AND 1400 BMP WILL BE DRAWN TO SEE WHERE SODIUM LEVELS ARE. PATIENT IS ALLOWED TO HAVE AN ADDITIONAL 500 ML OF FREE WATER, IDEALLY TO BE DRANK BEFORE 1330. PT'S BLOOD PRESSURES HAVE BEEN MORE ELEVATED THIS MORNING AND WILL CONTINUE TO MONITOR THIS.
--- NOTE | 2021-07-07 15:18 | NUR ---
PATIENT UP ON COMMODE AT THIS TIME. PT'S 1400 SODIUM WAS 121 AND NO FURTHER ORDERS AT THIS TIME. PT REMAINS SALINE LOCKED. PT STILL FRUSTATED WITH OVERALL HOSPITAL VISIT, AND WANTING TO KNOW, "WHAT ARE THEY DOING ABOUT MY SODIUM LEVEL?" DISCUSSED WITH PATIENT THE IMPORTANCE OF HER FREE WATER FLUID RESTRICTION, WELL THE 3% SALINE SOLUTION SHE WAS RECEIVING EARLIER. PT REMAINS WITH COMPRESSION SOCKS ON AND EDEMA SEEMS SLIGHTLY BETTER AFTER WEARING THESE. MINIMAL WEEPING FROM LEGS NOW NOTED. GOWN CHANGED EARLIER THIS AFTERNOON. WILL CONTINUE TO MONITOR.
--- NOTE | 2021-07-07 15:42 | NUR ---
PATIENT UP TO BSC TO VOID. PT THEN WANTING TO WALK INTO BATHROOM BUT ONCE SHE GETS THERE, SHE STATES THE BATHROOM IS TOO SMALL FOR HER, AND SHE CAN'T TOLERATE BEING IN THERE. PT ALSO C/O SEEING "BUGS MOVING ON THE GROUND" BUT RECOGNIZES THAT THEY AREN'T ACTUALLY THERE. PT STATES, "WHAT WOULD CAUSE THAT?! I DIDNT' TAKE MY EYE DROPS FOR 5 DAYS, AND MY EYES WERE BURNING." DISCUSSED WITH PATIENT THAT THIS RN IS NOT ENTIRELY SURE WHAT THE CAUSE OF THIS IS, BUT IT POTENTIALLY COULD HAVE SOMETHING TO DO WITH HER LOW SODIUM LEVELS AND WE WILL KEEP AN EYE ON IT. PT THEN ABLE TO BRUSH TEETH WHILE SITTING ON BED. PT GIVEN 350 ML OF WATER AT THIS TIME IN HER CUP. WILL CONTINUE TO MONITOR.
--- NOTE | 2021-07-07 19:06 | NUR ---
PATIENT UP TO BSC AND GIVEN COUMADIN 10 MG AND TYLENOL 500 MG. PT NOW ON PHONE WIHT FAMILY. CONTINUE TO MONITOR. PT REMAINS SALINE LOCKED. PT HAS 250 ML LEFT OF FLUID RESTRICTION TO GET HER THROUGH UNTIL 0600. NEXT LAB DUE AT 1999.
--- NOTE | 2021-07-07 20:00 | NUR ---
PT CALLED FOR ASSISTANCE TO BEDSIDE COMMODE, STAFF INTO ASSIST.
--- NOTE | 2021-07-07 20:30 | NUR ---
THIS RN INTO ROOM FOR HS MEDS PASS AND ASSESSMENT. PT ATTEMPTING TO TRANSFER OFF MODE BY HERSELF, TO PT BEDSIDE TO ASSIST, PT NEEDED ASSISTANCE WITH PULLING HER BRIEFS UP. PT BACK TO BED, SHE VERBALIZES HER FRUSTRATION WITH REMOTES AND LIGHTS TURNED ON BY LAB AND LEFT ON. SHE SAID SHE HAD ASKED FOR LOTION AND WAS NOT GIVEN IT, THIS RN SPOKE WITH PT ABOUT SODIUM LEVELS AND LAB RESULTS, ALSO DISCUSSED WITH PT THAT ALL NEEDS WOULD BE MET PRIOR TO THIS RN LEAVING THE ROOM. LIGHTS ADJUSTED TO PT DESIRE, NEW BLUE REMOTE PROVIDED, LOTION PROVIDED, PT CONTINUES TO MOVE HER ARMS AND PULLING ON LEADS, SHE IS NOT DOING THIS ON PURPOSE, PT VERBALIZED THAT SHE IS FEELING A LOT BETTER FAR HER ANXIETY AFTER THIS RN ROUNDED. SHE SAID SHE IS GOING TO ATTEMPT TO REST, NOTED THAT HER HEART RHYTHM IS FLUCTUATING IN AND OUT OF AFIB TO PACED. PT HAS NO OTHER REQUESTS AT THIS TIME.
--- NOTE | 2021-07-07 21:00 | NUR ---
PT RESTING IN BED, USING LOTION AND MOVING ITEMS AROUND ON BEDSIDE TABLE, NO DISTRESS NOTED.
--- NOTE | 2021-07-07 21:16 | EKG ---
[facility] [address] [place] [address] Signed Atrial fibrillation with occasional ventricular-paced complexes Left axis deviation Right bundle branch block Abnormal ECG When compared with ECG of 02-JUL-2021 21:06, Vent. rate has increased BY 17 BPM Confirmed by NABIL STRINGER MD ([id number]) on 07/07/2021 9:16:44 PM Electronically Signed By: NABIL STRINGER MD 07/07/212115 PATIENT NAME: ALLEN GOLDMAN CHRISTOPHER Electrocardiogram DATE OF : 32 PHYSICIAN: NABIL STRINGER MD REPORT #: [id number] REPORT IS CONFIDENTIAL AND NOT TO BE RELEASED WITHOUT AUTHORIZATION
--- NOTE | 2021-07-07 23:00 | NUR ---
PT UP TO BEDSIDE COMMODE VOIDED 200ML CLEAR YELLOOW URINE. PT TOLERATED ACTIVITY WELL. ASSISTED PT TO POSITION COMFORTABLE WITH LEGS ELEVATED TO ASSIST WITH EDEMA.
--- NOTE | 2021-07-08 01:28 | NUR ---
PT RESTING IN BED EYES CLOSED RR REGULAR. NO DISTRESS NOTED.
--- NOTE | 2021-07-08 01:51 | NUR ---
PT CALLED NURSES STATION TO REPORT DISCOMFORT BEHIND HER KNEE LEFT LEG, HER JENNIFER HOSE HAD ROLLED BEHIND HER KNEE, READJUSTED JENNIFER HOSE, PT REPORTS IMPROVED COMFORT IMMEDIATELY, SHE THEN REQUESTED ASSISTANCE UP TO BEDSIDE COMMODE VOIDED 300ML CLEAR YELLOW URINE. PT TOLERATED ACTIVITY WELL, SHE IS BACK IN BED WITH LEGS ELEVATED, LAB STAFF IN ROOM NOW FOR 0200 NA CHECK.
--- NOTE | 2021-07-08 03:05 | NUR ---
PT CALLED, NEEDING TO VOID, ASSISTED PT TO BSC, PT VOIDED, ASSISTED BACK TO BED, PT REQUESTING MEDS AND WATER, PRIMARY RN RETURNING FROM LUNCH, PRIMARY RN UPDATED ON PT AND INFORMED PT WAS REQUESTING PRN MEDICAITONS AND FLUIDS, UNSURE OF PT'S DIET STATUS SO CONFIRMED IT WAS OKAY WITH PRIMARY RN PRIOR TO BRINGING HER FLUIDS.
--- NOTE | 2021-07-08 03:12 | NUR ---
PT BACK TO BED FROM BEDSIDE COMMODE, USED CALLED LIGHT APPROPRIATELY TO NOTIFY STAFF WHEN FINISHED. SHE REPORTS KENDRICK 3/10 TYLENOL ADMINISTERED AT THIS TIME.
--- NOTE | 2021-07-08 05:54 | NUR ---
PT CALLED NURSES STATION TO REQUEST ASSISTANCE WITH UP TO BEDSIDE COMMODE. PT VOIDED 250ML CLEAR YELLOW URINE. SHE IS NOW SITTING AT BEDSIDE SHE HAS REPORTED THAT SHE FEELS DEHYDRATED, DISCUSSED THE FLUID RESTRICTION, SHE IS BECOME MORE ANXIOUS STUTTERING AND REPEATING HER WORDS MORE RAPIDLY, SHE SAID "I JUST FEEL LIKE I NEED MORE WATER, SOMETHING TO DRNK RIGHT NOW" PT IS PROVIDED WITH 100ML OF BLACK COFFEE AT THIS TIME.
--- NOTE | 2021-07-08 09:35 | NUR ---
IN PATIENT'S ROOM AT 0900 FOR ASSESSMENT AND TOLL BOOTH OPERATOR. PT SITTING ON EDGE OF BED EATING HER BREAKFAST. WHEN ASKING PATIENT HOW SHE IS FEELING, SHE EXPLAINS THAT SHE IS NOT GOOD, DUE TO HAVING TO WAIT SO LONG FOR WATER, HAVING TO DEAL WITH A DRY MOUTH, AND HAVING A BAD HEADACHE. PT ALSO COMPLAINING ABOUT HER COFFEE WHICH SHE STATES IS ICE COLD, BUT EXHIBITS CURATOR HAD JUST PROVIDED PATIENT WITH FRESH HOT COFFEE. PT UNAWARE OF THIS, BUT ONCE REALIZES THE COFFEE IS HOT, SHE STARTS TO DRINK IT. PT REMAINS IN AFIB OR UNDERLYING PACED RHYTHM. SWELLING IN LEGS IS STILL 3-4+, WITH JENNIFER HOSE ON. PATIENT HAS BEEN SITTING AT EDGE OF BED FOR ABOUT 45 MINUTES, AND SWELLING SEEMS MORE LOCALIZED TO ANKLES/FEET AT THIS TIME. LEGS DO NOT SEEM TO BE WEEPING ANY LONGER HOWEVER. DISCUSSED WITH PATIENT HER LAB VALUES FROM THIS AM AND HER CURRENT SODIUM LEVEL OF 127. SODIUM CHLORIDE TABS ORDERED AND GIVEN TO PATIENT. LUNGS ARE CLEAR IN UPPER LOBES WITH COARSENESS NOTED TO LOWER LUNGS.
--- NOTE | 2021-07-08 10:56 | NUR ---
PATIENT'S SON ARRIVES AROUND 1000 FROM [place]. GIVEN AN UPDATE ON HOW PATIENT IS DOING OVERALL. NO FURTHER QUESTIONS AT THIS TIME. NEXT BLOOD DRAW IS TOMORROW AM. PT NOW TAKING SODIUM CHLORIDE TABS TO HELP BRING UP SODIUM LEVEL.
--- NOTE | 2021-07-08 12:39 | NUR ---
IN PATIENT'S ROOM FOR ASSESSMENT AND UP TO BSC. PT VOIDS 240 ML. SAT DOWN TO TALK WITH PT AND LISTENED TO HER DISCUSSION OF TIMELINE OF EVENTS SINCE THE BEGINNING OF JUNE. PT OVERALL VERY FRUSTRATED WITH ENTIRE SEQUELAE OF EVENTS AND HER ILLNESSES. PT NOW SITTING ON EDGE OF BED EATING LUNCH. PT REMAINS ON 1200 ML FLUID RESTRICTION. JENNIFER HOSE REMAIN ON BILATERAL LOWER LEGS. EDEMA STILL PRESENT 3+ IN SOME AREAS. LUNGS ARE CLEAR AND PT DENIES ANY SOB. SP02 IS 95-96%. PT'S SON LEAVES PRIOR TO ALL OF THIS AND STATES HE IS GOING TO REST. PT ALSO REQUESTING NICOTINE LOZENGE, WHICH WILL BE ORDERED FOR PATIENT. HR IN THE 80s, AFIB AND SOME PACED BEATS WELL.
--- NOTE | 2021-07-08 14:46 | NUR ---
PATIENT RESTING AT THIS TIME, APPEARS ASLEEP AND COMFORTABLE. RR EVEN AND UNLABORED. PT HAS BEEN RESTING LIKE THIS IN BED SINCE AROUND 1400. PT'S JENNIFER HOSE WERE ADJUSTED PRIOR TO PATIENT FALLING ASLEEP. WILL CONTINUE TO MONITOR.
--- NOTE | 2021-07-08 15:00 | NUR ---
PATIENT CALLED VIA CALL LIGHT, WHEN I WENT IN THERE SHE TOLD THAT SHE WAS HAVING A LITTLE TROUBLE BREATHING AND WANTED TO STAND AT THE EDGE OF THE BED. I HELPED THE PATEINT STAND AND SHE SAID THAT SHE STARTED TO FEEL BETTER AND THAT SHE JUST FELT LIKE SHE NEEDED TO STAND. AFTER 10 MINUTES THE PATIENT SAID SHE FELT 100% PERCENT BETTER AND SAT BACK DOWN IN THE BED. THEN THE PATIENT LAID BACK DOWN AND SAID SHE WAS FEELING BETTER. SHE ASKED FOR A WET WASHCLOTH AFTER SHE WAS COMFORTABLE IN THE BED.
--- NOTE | 2021-07-08 19:30 | NUR ---
RECEIVED REPORT FROM DAY SHIFT RN. PT REQUESTING HELP TO BSC. PT A SBA SON IN ROOM . DENIES ANY CONCERNS AT THIS TIME. RESP EVEN AND UNLABORED. JENNIFER HOSES IN PLACE. PT PLEASED WITH THE DECREASE OF SWELLING TO BLE. CALL LIGHT WITHIN REACH WILL CONTINUE TO MONITOR.
--- NOTE | 2021-07-08 21:14 | NUR ---
PT REQUESTING TO HAVE HER LEGS ELEVATED WITH PILLOWS. PT RESP EVEN AND UNLABORED. CALL LIGHT WITHIN REACH WILL CONTINUE TO MONITOR
--- NOTE | 2021-07-08 22:34 | NUR ---
PATIENT ASSISTED TO THE BSC A 1PA. PATIENT ABLE TO VOID. PATIENT IS BACK IN BED RESTING. SOB W/ACITIVITY NOTED. PATIENT REMAINS ON RA. PATIENTS BILAT LOW EXT ELEVATED ON PILLOWS X2. PATIENT DENIES ANY FURTHER NEEDS. CALL LIGHT AND BELONGINGS ARE WITH IN REACH.
--- NOTE | 2021-07-08 23:29 | NUR ---
PT REQUESTING PRN PAIN MEDS AND NICOTINE LOZENGE. RESP EVEN AND UNLABORED, CALL LIGHT WITHIN REACH WILL CONTINUE TO MONITOR.
--- NOTE | 2021-07-09 00:08 | NUR ---
PT REQUESTING HELP TO BSC. PT BACK TO BED , STATES SHE WANTS TO GET BETTER TO GO HOME . DENIES ANY CONCERNS AT THIS TIME. VSS RESP EVEN AND UNLABORED. CALL LIGHT WITHI REACH WILL CONTINUE TO MONITOR.
--- NOTE | 2021-07-09 02:38 | NUR ---
PT RESTING IN BED WITH EYES CLOSED IN NO ACUTE DISTRESS. PT RESP EVEN AND UNLABORED. CALL LIGHT WITHIN REACH WILL CONTINUE TO MONITOR.
--- NOTE | 2021-07-09 05:01 | NUR ---
PT CALLED REPORTING THAT SHE CAN NOT BREATHE. AUDIBLE SECRETIONS HEARD IN THROAT. HAD PT CLEAR SECRETIONS, O2 SATS GREATER THAN 96% WHEEZING TO BILATERAL LOBES. PRN TREATMENT GIVEN BY R.T. PT ANXIOUS, REASSURED PT THAT SHE IS MOVING AIR AND SATS ARE GOOD. VSS PT RESP EVEN AND UNLABORED. WILL CONTINEU TO MONITOR.
--- NOTE | 2021-07-09 06:08 | NUR ---
GAVE PT PRN TYLENOL FOR SHOULER AND BACK PAIN. PT STANDING UP AT BEDSIDE. PT REQUESTING TO OPEN UP CURTAIN AND TO LET HER STAND AT BEDSIDE. VSS CALL LIGHT WITHIN REACH WILL CONTINUE TO MONITOR.
--- NOTE | 2021-07-09 08:25 | NUR ---
PATIENT SITTING UP IN CHAIR AT THIS TIME FOR BREAKFAST. LINENS CHANGED. WASHCLOTH GIVEN FOR HANDS AND FACE. VITALS CHARTED. CALL LIGHT IN EASY REACH
--- NOTE | 2021-07-09 08:25 | NUR ---
PATIENT'S SON ON THE PHONE AND GIVEN AN UPDATE. VADIM WAS CALLED BY NOC SHIFT RNs THIS AM WHEN PATIENT WANTED HIM TO BE CALLED AROUND 0500. PT NOW SITTING UP IN CHAIR AND EATING BREAKFAST, DRINKING COFFEE. ASSESSMENT TO BE COMPLETED. HR IN THE 80s, AFIB WITH SOME PACED BEATS WELL. BP THIS AM 143/84.
--- NOTE | 2021-07-09 08:47 | NUR ---
DR. STRINGER IN ROOM AT THIS TIME. PT EXPLAINING HER ANXIETY ATTACK THIS AM SHE HAD AND RELATES THIS TO "THE DOOR BEING CLOSED. I CAN'T STAND THE DOORS BEING CLOSED." SODIUM IS 134 THIS AM. PT EATING BREAKFAST STILL. EDEMA IN LEGS STILL PRESENT BUT MORE LIKE 2+ THIS AM. JENNIFER HOSE REMAINS ON. PT ALSO EXPLAINING THAT THE NICOTINE LOZENGES THAT WE PROVIDED FOR HER WERE NOT GOOD AND MADE HER MOUTH EVEN MROE DRY, AND CAUSED HER TO PANICK. HR IN THE 80s, AFIB, PACED BEATS.
--- NOTE | 2021-07-09 08:58 | NUR ---
PT WILL TRANSFER TO THE MEDICAL FLOOR W/O TELEMETRY. PT TAKEN OFF SPRING MAKER.
--- NOTE | 2021-07-09 10:49 | NUR ---
PATIENT WILL TRANSFER TO MEDICAL FLOOR 113 W/O TELEMETRY. PT'S SERUM AND URINE OSMOLALITY VALUES ARE BACK AND PLACED ON FRONT OF CHART FOR DR. STRINGER TO REVIEW. DR. STRINGER CALLED TO NOTIFY THESE ARE ON CHART. VALUES ARE SERUM OSMO OF 236 AND URINE OSMO OF 336. PATIENT'S SON IN ROOM AT THIS TIME. WILL CONTINUE TO MONITOR.
--- NOTE | 2021-07-09 11:57 | NUR ---
REPORT GIVEN TO EDITA RN ON MED/SURG WHO WILL RESUME CARE FOR PATIENT. PATIENT'S SON AND HER PERSONAL BELONGINGS WERE TAKEN WITH HER. PT MOVED TO ROOM 113.
--- NOTE | 2021-07-09 12:00 | NUR ---
PT. TRANSFERRED FROM CCU THIS AFTERNOON S/P HYPONATREMIA, MULTIPLE ADMISSIONS SINCE 5-19 FOR THE SAME. BILATERAL LE SWELLING, ANASARCA, BNP 8,500, CO ANXIETY AND PANIC ATTACKS, RECENT SYNTHROID ADJUSTMENTS, CKD, CHF, CURRENT SMOKER, NICOTINE PATCHES WHILE ADMITTED. WORKUP IN PROGRESS
--- NOTE | 2021-07-09 16:07 | NUR ---
RN defers PT evaluation today. Patient's son made a remark about her having a panic attack, or close to it, and RN spends extensive time with patient. Will attempt 07/10/21.
--- NOTE | 2021-07-09 18:20 | NUR ---
ADMITTED 07/06 FOR RECURRENT HYPONATREMIA, RECENT ADMISSIONS X 3 SINCE 06/28, LEVOTHYROXINE ADJUSTED LAST ADMISSION. NA 118 BUT TODAY 134, SIADH. CXR SHOWS PLEURAL EFFUSION, COVID + PER PCR, ON RA SATS WNL, TACHYPNIC WITH EXERTION. CURRENT EVERYDAY SMOKER, NICOTINE PATCH WHILE ADMITTED. YAIMA LE 3+ EDEMA, SLIGHT ANASARCA. AFIB, PHARMACY DOSING COUMADIN. BNP ADM. WAS 8,500. EF 55-60%. PPM. UP TO BR, SBA. 1200 CC FR. LBM 07/07.
--- NOTE | 2021-07-09 19:20 | NUR ---
REPORT RECEIVED FROM DAY SHIFT RN. PT LYING IN BED ALERT AND ORIENTED. FAMILY IN ROOM. DENIES NEEDS. WHITE BOARD UPDATED. CALL LIGHT IN REACH. BED ALARM FOR SAFETY.
--- NOTE | 2021-07-09 21:32 | NUR ---
BED ALARM SOUNDING. SBA TO BR TO VOID 300 ML CLEAR YELLOW URINE. GAIT STEADY. PT ABLE TO DO OWN VENKAT CARE. BACK TO BED, JEN WELL. VS AND I&O COMPLETE. EVENING ASSESSMENT COMPLETE. SCHEDULED MEDS ADMIN PER EMAR. PT DENIES PAIN OR NAUSEA AT THIS TIME. REPORT SLIGHT SOB WITH ACTIVITY. RESPIRATIONS EVEN. JENNIFER RAMIREZ BILAT, EDEMA NOTED. PT REMAINS WITHIN FLUID RESTRICTION. ORAL CARE SUPPLIES AND SALVE FOR FACE PROVIDED PT COMPLAINS OF "FEELING DRY". PT DENIES QUESTIONS OR CONCERS. FAMILY AT BEDSIDE. CALL LIGHT IN REACH.
--- NOTE | 2021-07-09 22:32 | NUR ---
PT UP TO BR WITH SBA TO VOID. AT SINK FOR PM CARES. BACK TO BED, JEN WELL. BLE ELEVATED ON PILLOW. PRN FOR PAIN ADMIN FOR REPORTS OF RIGHT SHOULDER PAIN. PT AGREES SHE IS COMFORTABLE AT THIS TIME. LIGHTS TURNED DOWN PER REQUEST. BED ALARM FOR SAFETY. CALL LIGHT IN REACH.
--- NOTE | 2021-07-09 23:56 | NUR ---
PT RESTING IN BED WITH EYES CLOSED. RESPIRATIONS EVEN. CALL LIGHT IN REACH. BED ALARM IN PLACE.
--- NOTE | 2021-07-10 01:53 | NUR ---
PT RESTING WITH EYES CLOSED IN BED. RESPIRATIONS EVEN. BED ALARM FOR SAFETY. CALL LIGHT IN REACH.
--- NOTE | 2021-07-10 02:25 | NUR ---
BED ALARMING. PATIENT TRIED TO PLASTICS FABRICATOR THE CALL LIGHT ON THE FLOOR. PATIENT GOT UP TO THE BATHROOM. SBA. PATIENT IS BACK IN BED. CALL LIGHT IS LOOP TO THE BED RAIL FOR IT TO STAY IN REACH. PATIENT STATED I THINK ITS TIME FOR PAIN MED. PRIMARY RN NOTIFIED. BED ALARM ON FOR SAFETY.
--- NOTE | 2021-07-10 02:45 | NUR ---
PT REPORTS RIGHT SHOULDER PAIN 5/10. PRN FOR PAIN ADMIN PER EMAR. EXTRA PILLOW PROVIDED FOR COMFORT. NO FURTHER NEEDS. CALL LIGHT IN REACH. BED ALARM IN PLACE.
--- NOTE | 2021-07-10 04:27 | NUR ---
PT UP TO BR WITH MINIMAL SBA TO VOID. ABLE TO DO OWN VENKAT CARE. AT SINK TO WASH HANDS. BACK TO BED, JEN WELL. GAIT STEADY. PT SITTING ON SIDE OF BED PER REQUEST. NO FURTHER NEEDS. CALL LIGHT IN REACH.
--- NOTE | 2021-07-10 06:10 | NUR ---
PATIENT GOT UP TO THE BATHROOM. PATIENT IS BACK IN BED. NO OTHER NEEDS AT THIS TIME. GIVEN 200 ML OF WATER @0600.
--- NOTE | 2021-07-10 06:32 | NUR ---
SCHEDULED MEDS ADMIN PER EMAR. PT REPORTS RIGHT SHOULDER/LEFT HAND PAIN 06/19. PRN FOR PAIN ADMIN PER EMAR. PT DENIES FURTHER NEEDS. CALL LIGHT IN REACH.
--- NOTE | 2021-07-10 07:10 | NUR ---
ANSWERED CALL LIGHT. WARM BLANKET PROVIDED. DENIES ANY FURTHER NEEDS AT THIS TIME.
--- NOTE | 2021-07-10 07:32 | NUR ---
REPORT RECEIVED FROM ALYSHA OLIVERA. PT RESTING IN BED ON R SIDE WITH EYES CLOSED, RESPRIATIONS EVEN AND UNLABORED. HEAD OF BED ELEVATED TO 20 DEGREES. BED RAILS UP. CALL LIGHT WITHIN REACH. PT ALLOWED TO REST UNDESTURBED.
--- NOTE | 2021-07-10 08:20 | NUR ---
MORNING ASSESSMENT AND MEDICATION DUE. PT SITTING ON EDGE OF BED, AWAKE AND ALERT. PT REPROTS 5/10 PAIN REMAINS IN LEFT HAND AND RIGHT SHOULDER. MEDICATION RECENTLY GIVEN. IV ASSESSED, WNL. NO S/S OF PHLEBITIS NOTED, FLUSHED AND SALINE LOCKED, ALCOHOL CAP APPLIED. PT ORIENTED TO ALL. PT DECLINES TIME UP TO CHAIR REPORTING SHE WOULD LIKE TO STAY SITTING AT THE EDGE OF THE BED. LUNG SOUNDS CLEAR IN UPPER LOBES, RAILS NOTED IN BASES OF LUNGS. RT TO BEDSIDE FOR BREATHING TREATMENT. PT REPROTS ONGOING TROUBLE WITH DYSPNEA ON EXERTION. STAND BY ASSIST UP TO RESTROOM, NO SHORTNESS OF BREATH NOTED AT THIS TIME. OXGYEN SATRUATIONS OF 93-94% ON ROOM AIR. PT PERFORMES SELF VENKAT CARE. STAND BY ASSIST BACK TO EDGE OF BED. LOOSE COUGH NOTED. NO SPUTUM NOTED AT THIS TIME. EDEMA REMAINS UNCHANGED TO BLE, JENNIFER HOSE IN PLACE. PT DECLINES MEDICAITONS FOR CONSPITATION. OTHER MEDICAITONS GIVEN. PT PERFORMES SELF MORNING CARES INCLUDING ORAL CARE. NO ADDITIONAL NEEDS AT THIS TIME. CALL LIGHT WITHIN REACH. BED RAILS UP.
--- NOTE | 2021-07-10 10:22 | NUR ---
THIS RN TO ROOM TO CHECK ON PT. PT RESTING IN BED ON LEFT SIDE WITH EYES CLOSED. RESPRATIONS EVEN AND UNLABORED. BED RAILS UP. CALL LIGHT WITHIN REACH. PT ALLOWED TO REST.
--- NOTE | 2021-07-10 10:27 | NUR ---
PT CALL LIGHT ON. PT REQUESTS ASSISTANCE UP TO RESTROOM. STAND BY ASSIST UP TO RESTROOM. PT PERFORMS SELF VENKAT CARE. STAND BY ASSIST BACK TO BED. PT MAKING MULTIPLE COMMENTS ON HOW "COLD" THE ROOM IS. THERMOSTAT INCREASED, VITAL SINGS STABLE. PT RESTING IN BED. IRRITABLE WITH CARES AND DECLINES FURTHER ASSISTANCE OR WARM BLANKETS. WATER REFILLED WITHIN FLUID RESTRICTION. CALL LIGHT WITHIN REACH. BED RAILS UP.
--- NOTE | 2021-07-10 12:07 | NUR ---
RADHA CALLED, "WHERE'S MY PAIN PILL". THIS RN IN TO SEE PATIENT FOR 6/10 RIGHT SHOULDER PAIN AND GAVE PATIENT PO TYLENOL. OT IS WORKING WITH PATIENT AND PATIENT DENIED TO LET ME ASK ANY MORE QUESTIONS AT THIS TIME. CALL LIGHT IN REACH AND PATIENT'S SON ALSO IN THE ROOM TALKING WITH OT.
--- NOTE | 2021-07-10 12:33 | NUR ---
M/S STAFF RECOMMENDED I NOT VISIT PT AT THE MOMENT. WILL FOLLOW
--- NOTE | 2021-07-10 12:35 | NUR ---
THIS RN IN TO TAKE PATIENT HER LUNCH. PATIENT SITTING ON THE EDGE OF BED EATING NOW AND PATIENT'S SON IS IN THE ROOM AT BEDSIDE VISITING. PATIENT DENIED ANY OTHER CARE NEEDS FROM THIS RN AT THIS TIME.
--- NOTE | 2021-07-10 12:48 | NUR ---
PATIENT CALLED FOR SOME MIXED FRUIT AND SOME ICE WATER. THIS RN TOOK PATIENT IN SOME MIXED FRUIT AND TRADED OUT HER LUNCH TIME FLUIDS WITH ICE WATER. PATIENT DENIED ANY OTHER CARE NEEDS AT THIS TIME. PATIENT'S SON AT BEDSIDE. CALL LIGHT IN REACH.
--- NOTE | 2021-07-10 14:29 | NUR ---
PT JUST PASSED PATIENT FOR GOING HOME. IN TO TALK WITH PATIENT AND PATIENT'S SON.
--- NOTE | 2021-07-10 14:30 | NUR ---
PATIENT SITTING UP ON EDGE OF BED, SON AND DRDaina IN ROOM. VITALS AND I&O'S CHARTED. CALL LIGHT IN REACH. NO FURTHER NEEDS AT THIS TIME.
[2021-07-10] MEDS ORDERED: SODIUM CHLORIDE1 GM PO (14:37)
[2021-07-10] MEDS ORDERED: ZYRTEC10 MG PO (15:23)
--- NOTE | 2021-07-10 15:55 | NUR ---
THIS RN WENT OVER DC INSTRUCTIONS AND F/U APPOINTMENT INSTRUCTIONS WITH PATIENT AND HER SON AND ALL QUESTIONS WERE ANSWERED. PATIENT HAD A NEB TREATMENT JUST PRIOR TO DC AND WAS GIVEN HER COUMADIN DOSE FOR THE DAY. JENNIFER RAMIREZ PLACED BACK ON PATIENT BY THIS RN AND IV DC'D INTACT AND WRAPPED WELL TO PREVENT BLEEDING. THIS RN INSTRUCTED PATIENT THAT SHE SHOULD NOT BE SMOKING OR DRINKING ALCOHOL THESE ACTIVITES WOULD MAKE HER HEALTH WORSE AND POSSIBLY END HER BACK UP IN THE HOSPITAL. PATIENT VERBALIZED UNDEERSTANDING. PHARMACIST HAS NIKO GONE OVER MEDS AND THIS RN TOOK PATIENT OUT TO HER PRIVATE CAR IN HOSPITAL W/C. SON DRIVING PATIENT HOME.
== END 2021-07-10 15:55 | disposition home or self-care (01) | DRG 643 ==
LOC: ED 17:49 → CCU 19:30 → MS 19:30
PROVIDERS: ADMIT Internal Medicine; ATTEND Internal Medicine
DX: E22.2 Syndrome of inappropriate secretion of antidiuretic hormone (principal); U07.1 COVID-19; I48.0 Paroxysmal atrial fibrillation; J44.9 Chronic obstructive pulmonary disease, unspecified; E03.9 Hypothyroidism, unspecified; E78.5 Hyperlipidemia, unspecified; R60.0 Localized edema; I11.0 Hypertensive heart disease with heart failure; I50.9 Heart failure, unspecified; F17.210 Nicotine dependence, cigarettes, uncomplicated; Z96.642 Presence of left artificial hip joint; Z95.0 Presence of cardiac pacemaker; Z90.710 Acquired absence of both cervix and uterus; Z88.7 Allergy status to serum and vaccine; Z79.899 Other long term (current) drug therapy; Z79.52 Long term (current) use of systemic steroids; Z79.01 Long term (current) use of anticoagulants
CPT/HCPCS: 36415; 71045; 80048; 80053; 81001; 82570; 83735; 83880; 83930; 83935; 84300; 84484; 85025; 85610; 93005; 93010; 93970; 94640; A9270; C9803; J7131; U0003

== ENCOUNTER 2021-08-08 08:57 | Emergency (ER) | payer MEDICARE, OTHER ==
[~2021-08-08] VITALS: Ht 157.5 cm; Wt 74.7 kg
[~2021-08-08 08:57] MED LIST changes: +SODIUM CHLORIDE1 GM PO; +ZYRTEC10 MG PO
[2021-08-08] MEDS ORDERED: SODIUM CHLORI1000 MG MISC (09:11)
[2021-08-08] MEDS ORDERED: PREDNISONE20 MG PO (10:02)
--- NOTE | 2021-08-09 06:26 | EKG ---
[facility] [address] [facility] [place] [address] Signed Atrial fibrillation with occasional ventricular-paced complexes Left axis deviation Right bundle branch block Abnormal ECG When compared with ECG of 06-JUL-2021 18:33, Vent. rate has decreased BY 3 BPM Confirmed by NABIL STRINGER MD ([id number]) on 08/09/2021 6:26:18 AM Electronically Signed By: NABIL STRINGER MD 08/09/21 0626 PATIENT NAME: ALLEN GOLDMAN CHRISTOPHER Electrocardiogram DATE OF : 32 PHYSICIAN: NABIL STRINGER MD REPORT #: [id number] REPORT IS CONFIDENTIAL AND NOT TO BE RELEASED WITHOUT AUTHORIZATION
== END 2021-08-08 11:15 | disposition home or self-care (01) ==
LOC: ED 08:57
DX: J44.1 Chronic obstructive pulmonary disease with (acute) exacerbation (principal); M79.89 Other specified soft tissue disorders; I10 Essential (primary) hypertension; F17.200 Nicotine dependence, unspecified, uncomplicated; Z20.822 Contact with and (suspected) exposure to COVID-19; Z95.0 Presence of cardiac pacemaker; Z79.899 Other long term (current) drug therapy; Z79.01 Long term (current) use of anticoagulants
CPT/HCPCS: 36415; 71045; 80053; 83735; 83880; 84443; 84484; 85025; 85610; 85730; 87502; 93005; 93010; C9803; U0003

== ENCOUNTER 2021-08-13 09:43 | Emergency (ER) | payer MEDICARE, OTHER ==
[~2021-08-13] VITALS: Ht 157.5 cm; Wt 74.7 kg
[~2021-08-13 09:43] MED LIST changes: +SODIUM CHLORI1000 MG MISC
[2021-08-13] MEDS ORDERED: TRAZODONE HCL50 MG (09:56)
[2021-08-13] MEDS ORDERED: CONSTULOSE10 GM/15 M PO (09:57)
[2021-08-13] MEDS ORDERED: HYDROXYZINE HCL10 MG PO (09:57)
--- OUTSIDE RECORDS SUMMARY | 2021-08-13 10:40 | XMS ---
PreManage Notification: ALLEN GOLDMAN Security Blade Sharpener Events No recent Security Events currently on file CRITERIA MET - [facility] - 2 Visits in 30 Days CARE PROVIDERS AKILAH MORRISON Physician Assembly Instructions Writer 07/29/2018-Current PHONE: Unknown Deepak has no Care Guidelines for this patient. Care History Medical/Surgical 07/29/2018 [facility] - PATIENT HAS A FOLLOW UP APT [...] FURTHER CONTACT. E.D. VISIT COUNT (12 MO.) 5 [facility] TOTAL 5 NOTE: Visits indicate total known visits. ED/UCC VISIT TRACKING (12 MO.) 08/13/2021 09:44 [facility] TYPE: Emergency COMPLAINT: - DIFFICULTY BREATHING, ABD PAIN 08/08/2021 08:58 [facility] TYPE: Emergency COMPLAINT: - SOB, BLEEDING/WEEPING/SWOLLEN LEGS DIAGNOSES: - Contact with and (suspected) exposure to COVID-19 - Presence of cardiac pacemaker - Shortness of breath - Other specified soft tissue disorders - Chronic obstructive pulmonary disease with (acute) exacerbation - USP (current) use of anticoagulants - Essential (primary) hypertension - Nicotine dependence, unspecified, uncomplicated - Other termite exterminator (current) drug therapy 07/06/2021 17:50 [facility] TYPE: Emergency COMPLAINT: - SWOOLEN LEGS 07/02/2021 21:06 [facility] TYPE: Emergency COMPLAINT: - DIFFICULTY BREATHING 06/27/2021 07:59 [facility] TYPE: Emergency COMPLAINT: - DIFFICULTY BREATHING INPATIENT VISIT TRACKING (12 MO.) 07/06/2021 19:30 [facility] TYPE: Medical Surgical COMPLAINT: - SEVERE HYPONATREMIA DIAGNOSES: - Chronic obstructive pulmonary disease, unspecified - Heart failure, unspecified - rn long term care (current) use of systemic steroids - USP (current) use of anticoagulants - Acquired absence of both cervix and uterus - Localized edema - Hypothyroidism, unspecified - Presence of left artificial hip joint - Hyperlipidemia, unspecified - Paroxysmal atrial fibrillation - Presence of cardiac pacemaker - Hypo-osmolality and hyponatremia - Other nursing home (current) drug therapy - Hypertensive heart disease with heart failure - COVID-19 - Syndrome of inappropriate secretion of antidiuretic hormone - Nicotine dependence, cigarettes, uncomplicated - Allergy status to serum and vaccine 07/02/2021 21:07 [facility] TYPE: Observation COMPLAINT: - DYSPNEA, HYPONATREMIA DIAGNOSES: - Presence of right artificial hip joint - Contact with and (suspected) exposure to COVID-19 - Shortness of breath - USP (current) use of anticoagulants - Essential (primary) [...] DIAGNOSES: - Other specified hypothyroidism - Other termite exterminator (current) drug therapy - Hyperlipidemia, unspecified - Contact with and (suspected) exposure to COVID-19 - Unspecified glaucoma - Chronic atrial fibrillation, unspecified - Dysphagia, oropharyngeal phase - rn long term care (current) use of anticoagulants - Hyperlipidemia, unspecified - Other nursing home (current) drug therapy - Presence of cardiac pacemaker - Hypertensive chronic kidney disease with stage 1 through stage 4 chronic kidney disease, or unspecified chronic kidney disease - Allergy status to serum and vaccine - USP (current) use of anticoagulants - Acquired absence [...] and hyponatremia - Chronic atrial fibrillation, unspecified [email or web address]
[2021-08-13] MEDS ORDERED: PEPCID20 MG PO (12:46)
[2021-08-13] MEDS ORDERED: PREDNISONE20 MG PO (12:46)
== END 2021-08-13 13:20 | disposition home or self-care (01) ==
LOC: ED 09:43
DX: J44.9 Chronic obstructive pulmonary disease, unspecified (principal); K21.9 Gastro-esophageal reflux disease without esophagitis; F41.9 Anxiety disorder, unspecified; I10 Essential (primary) hypertension; F17.200 Nicotine dependence, unspecified, uncomplicated; Z95.0 Presence of cardiac pacemaker; Z88.8 Allergy status to other drugs, medicaments and biological substances; Z88.7 Allergy status to serum and vaccine
CPT/HCPCS: 36415; 71045; 80053; 83735; 83880; 84484; 85025; 85610; 94640; 96374; 99285-25; J1100

== ENCOUNTER 2021-08-18 08:01 | Inpatient (IN) | payer MEDICARE, OTHER ==
[~2021-08-18] VITALS: Ht 157.5 cm; Wt 71.5 kg
[~2021-08-18 08:01] MED LIST changes: +CONSTULOSE10 GM/15 M PO; +HYDROXYZINE HCL10 MG PO; +PEPCID20 MG PO; -SODIUM CHLORI1000 MG MISC; +SODIUM CHLORI1000 MG PO; +TRAZODONE HCL50 MG PO
--- OUTSIDE RECORDS SUMMARY | 2021-08-18 08:08 | XMS ---
PreManage Notification: ALLEN GOLDMAN Security Screen Door Maker Events No recent Security Events currently on file CRITERIA MET - [facility] - 2 Visits in 30 Days - 6 ED Visits in 6 Months CARE PROVIDERS AKILAH MORRISON Physician Prick Stitcher 07/29/2018-Current PHONE: Unknown Deepak has no Care Guidelines for this patient. Care History Medical/Surgical 07/29/2018 [facility] - PATIENT HAS A FOLLOW UP APT WITH DR MORRSION ON 08/06/18. - CHW CONTACTED PATIENT DUE TO FALL RISK- PATIENT CURRENTLY LIVES ALONE AND DOES NOT HAVE FAMILY IN THE AREA. - CHW DISCUSSED RESOURCES AND PATIENT HAS DECLINED IN HOME SERVICES/RESOURCES AT THIS TIME BUT WILL THINK ABOUT IT IN THE FUTURE. - CHW PROVIDED PATIENT WITH CHW CELL PHONE NUMBER FOR FURTHER CONTACT. E.D. VISIT COUNT (12 MO[address] [facility] TOTAL 6 NOTE: Visits indicate total known visits. ED/UCC VISIT TRACKING (12 MO.) 08/18/2021 08:02 [facility] TYPE: Emergency COMPLAINT: - HOMER 08/13/2021 09:44 [facility] TYPE: Emergency COMPLAINT: - DIFFICULTY BREATHING, ABD PAIN DIAGNOSES: - Gastro-esophageal reflux disease without esophagitis - Essential (primary) hypertension - Nicotine dependence, unspecified, uncomplicated - Presence of cardiac pacemaker - Anxiety disorder, unspecified - Allergy status to other drugs, medicaments and biological substances - Allergy status to serum and vaccine - Shortness of breath - Chronic obstructive pulmonary disease, unspecified 08/08/2021 08:58 [facility] TYPE: Emergency COMPLAINT: - SOB, BLEEDING/WEEPING/SWOLLEN LEGS DIAGNOSES: - Contact with and (suspected) exposure to COVID-19 - Presence of cardiac pacemaker - Shortness of breath - Other specified soft tissue disorders - Chronic obstructive pulmonary disease with (acute) exacerbation - longterm (current) use of anticoagulants - Essential (primary) hypertension - Nicotine dependence, unspecified, uncomplicated - Other extermination supervisor (current) drug therapy 07/06/2021 17:50 [facility] [...] disease, unspecified - Heart failure, unspecified - roasterman (current) use of systemic steroids - roasterman (current) use of anticoagulants - Acquired absence of both cervix and uterus - Localized edema - Hypothyroidism, unspecified - Presence of left artificial hip joint - Hyperlipidemia, unspecified - Paroxysmal atrial fibrillation - Presence of cardiac pacemaker - Hypo-osmolality and hyponatremia - Other extermination supervisor (current) drug therapy - Hypertensive heart disease [...] to COVID-19 - Shortness of breath - longterm (current) use of anticoagulants - Essential (primary) hypertension - Chronic atrial fibrillation, unspecified - Hypothyroidism, unspecified - Unspecified chronic bronchitis - Presence of cardiac pacemaker - Allergy status to serum and vaccine - Hypo-osmolality and hyponatremia - Syndrome of inappropriate secretion of antidiuretic hormone - Nicotine dependence, cigarettes, uncomplicated - Hyperlipidemia, unspecified 06/27/2021 10:[address] [facility] TYPE: Medical Surgical COMPLAINT: - PROBABLE ACUTE SYSTOLIC CHF DIAGNOSES: - Other specified hypothyroidism - Other shelter (current) drug therapy - Hyperlipidemia, unspecified - Contact with and (suspected) exposure to COVID-19 - Unspecified glaucoma - Chronic atrial fibrillation, unspecified - Dysphagia, oropharyngeal phase - longterm (current) use of anticoagulants - Hyperlipidemia, unspecified - Other shelter (current) drug therapy - Presence of cardiac pacemaker - Hypertensive chronic kidney disease with stage 1 through stage 4 chronic kidney disease, or unspecified chronic kidney disease - Allergy status to serum and vaccine - longterm (current) use of anticoagulants - Acquired absence [...] and hyponatremia - Chronic atrial fibrillation, unspecified [email or web address]
--- NOTE | 2021-08-18 09:50 | NUR ---
89 YEAR OLD FEMALE PATIENT ADMITTED TO CCU FROM ED VIA STRETCHER WITH DX OF SEPSIS SECONDARY TO RLL CELLULITIS. PATIENT HAS HX OF CELLULITIS, HAS HAD RECENT ADMISSION. PATIENT RECIEVED ANCEF IN ED NOW VANCO READY TO BE HUNG. UPON ADMIT TO CCU PATIENT IS AWAKE, ALERT, ORIENTED. IS VERY TALKATIVE. DIFFICULT TO ADMIT PATIENT SHE IS TALKING ALL THE TIME. IS SOMEWHAT ANXIOUS. DENIES PAIN OR NAUSEA. ADMISSION PROCESS STATRED.
--- NOTE | 2021-08-18 10:30 | NUR ---
right leg elevated on pillow. RIGHT LEG WRAPPED WITH KERLIX FOLLOWED BY SARA WRAP, TO THIGH. LEFT LEG WRAPPED WITH SARA WRAP TO KNEE. PATIENT IS COOPERATIVE.
--- NOTE | 2021-08-18 10:35 | NUR ---
THIS RN TO ROOM TO ASSIST WITH IV START. 22G IV START PER PROTOCOL TO RIGHT FORARM. PT TOLERATED WELL. BRISK BLOOD RETURN NOTED. VANCO INFUSION STARTED THROUGH THIS IV SITE. NO ADDITIONAL NEEDS. SIMRAN RN AT BEDSIDE WORKING WITH PT.
--- NOTE | 2021-08-18 12:00 | NUR ---
TOOK LUNCH WELL. STATES SHE HAS NOT BEEN EATING WELL AT HOME. MEDICATIONS GIVEN.
--- NOTE | 2021-08-18 13:30 | NUR ---
NAPPING, NO DISTRESS NOTED.
--- NOTE | 2021-08-18 19:30 | NUR ---
REPORT RECEIVED FROM DAYSHIFT NURSES
--- NOTE | 2021-08-18 20:20 | NUR ---
PT IS REPEATEDLY WASTE TREATMENT OPERATOR LIGHT, HAS VARIOUS REQUESTS FOR KEEPING LIGHTS DIM, NEEDING A PHONE ENGINEERING TEAM SUPERVISOR, NEEDING ANOTHER PILLOW ETC. PT INFORMED THAT SHE WILL BE GETTING EVENING SCHEDULED MEDS, PT IS SCHEDULED FOR SPECIAL EYE DROPS THAT ARE NOT LOADED IN [facility] AND UNABLE TO LOCATE ON SEARCH, THERAPIST RESPIRATORY NOTIFIED. PT STATES SHE HAS THE DROPS AT HOME AND MAYBE "SOMEONE CAN BRING THEM IN" PT GIVEN EXTRA PILLOW AND PHONE ENGINEERING TEAM SUPERVISOR LOCATED FOR HER TO CHARGE HER PHONE.
--- NOTE | 2021-08-18 21:52 | NUR ---
PATIENT ASSESSMENT COMPLETE. PTNEEDED TO GET UP TO VOID,PT VERY INSISTIVE OF GETTING HERSELF TO COMMODE AND BEING ABLE TO WIPE HERSELF, "I CAN DO IT MIGHT TAKE ME AWHILE BUT I CAN DO IT" PT INFORMED THAT THIS IS OK, AND IS ENCOURAGED TO E ABLE TO DO THINGS INDEPENDENTLY BUT FOR SAFETY REASON I WILL BE STANDING BY HER DUE TO HER CABLES, ETC AND HAVING LIMITED MOBILITY TO HER LEGS.PT WAS ABLE TO GET TO COMMODE AND BACK TO HER BED SAFELY WITH STANDBY ASSIST. PT PROVIDED PRUNE JUICE AND YOGURT PER REQUEST.
--- NOTE | 2021-08-18 22:49 | NUR ---
PT HAS BEEN GIVEN HER NIGHT SCHEDULED MEDS, HAS GOTTEN UP TO USE BEDSIDE COMMODE TO VOID AGAIN, 175 ML. DENIES OTHER NEEDS, IS REALLY INSISTENT ABOUT DOING THINGS FOR HERSELF. P ENCOURAGED TO USE CALL LIGHT TO ALERT STAFF IF SHE NEEDS ANYTHING PT ASKED TO NOT TRY TO GET UP WTHOUT ASSISTANCE FROM STAFF.
--- NOTE | 2021-08-19 00:08 | NUR ---
pt resting on bed, eyes closed, even rise and fall of chest. rails are up and call light in reach. door slightly open as well as curtain per patient request.
--- NOTE | 2021-08-19 00:30 | NUR ---
PT ASSESSMENT COMPLETE.
--- NOTE | 2021-08-19 01:00 | NUR ---
pt crime prevention worker light several times in a row for little things such as helping adjust her legs and blankets. pt requesting to use commode to void, output 100 ml. pt requesting something for her "dry mouth" requests a nicotine lozenge. pt will not keep arm still for her bp readings.
--- NOTE | 2021-08-19 04:35 | NUR ---
pt pulmonary fellow light, requesting to use commode. thought he needd to have a bm, did not only passed gas. pt voided 350 ml urine however.
--- NOTE | 2021-08-19 07:23 | NUR ---
PT UP TO COMMODE W/STBY ASSIST. TRANSFERED SELF TO COMMODE W/MINIMAL PAIN IN LA. THIS CNA2 CHANGED LINEN ON BED WHILE PT WAS UP. PT PERFOMED VENKAT CARE INDEPENDENTLY. TANSFERED SELF BACK TO BED. SITTING AT BEDSIDE W/WARM WASH CLOTH FOR FACE AND HANDS. NO COMPLAINTS OF PAIN. NO OTHER REQUESTS AT THIS TIME. CALL LIGHT IN REACH.
--- NOTE | 2021-08-19 07:30 | NUR ---
REPORT RECIEVED. PATIENT TO COMMODE WITH ASSIST FROM TICKET SCHEDULER.
--- NOTE | 2021-08-19 08:00 | NUR ---
ASSESSMENT DONE. TALKED WITH PATIENT ABOUT POC FOR DAY, INDICATES UNDERSTANDING. DENIES PAIN. RIGHT LEG WRAPPED WITH SARA BANDAGE TO THIGH, LEFT LEG WRAPPED WITH SARA BANDAGE TO KNEE. SITTING UP IN BED READY FOR BREAKFAST. PATIENT CONTINUES TO BE VERY TALKATIVE.
--- NOTE | 2021-08-19 08:30 | NUR ---
TOOK BREAKFAST WELL. HR HAS BEEN > 100. DENIES FEEING SHORT OF BREATH OR FEELING PALPTATIONS.
--- NOTE | 2021-08-19 10:30 | NUR ---
DR. ESPINOSA HERE TO SEE PATIENT. RIGHT LEG UNWRAPPED BY DR. ESPINOSA, LEG REMAINS VERY RED, SMALL OF SEROSANG DRAINAGE NOTED. LEG REWRAPPED.
--- NOTE | 2021-08-19 10:40 | NUR ---
PO CARDIZEM 30 MG GIVEN PER ORDERS.
--- NOTE | 2021-08-19 15:15 | NUR ---
C/O FEELING LIGHT HEADED. STATES "I DON'T FEEL RIGHT" PATIENT IS LAYING IN BED. BP-122/55. TALKING WITH PATIENT ABOUT HOW LONG SHE HAS BEEN FEELING THIS WAY. PATIENT SAID SHE HAS FELT LIKE THIS, THIS MORNING. HARD CANDY GIVEN FOR DRY MOUTH. WILL GIVE ROUTINE CARDIZEM 45 MG.
--- NOTE | 2021-08-19 17:20 | NUR ---
REPORT TO MED-SURG. PATIENT IS SITTING UP IN CHAIR, FINISHED DINNER.
--- NOTE | 2021-08-19 17:30 | NUR ---
TO MED-SURG VIA W/C ACCOMP BY ALYSHA.
--- NOTE | 2021-08-19 17:37 | NUR ---
REPORT RECEIVED FROM CCU RN. PT TRANSFERRED TO MED-SURG. PT UP IN THE CHAIR CALL LIGHT IN HER LAP ICE WATER AT CHAIR SIDE. DENIES DISCOMFORTS OR NEEDS OF.
--- NOTE | 2021-08-19 18:40 | NUR ---
PT USES CALL LIGHT APPROPRIATELY. UP TO TOILET REFUSES WALKER USES RIOS AND FURNITURE TO BALANCE. PT RESTING IN BED NOW STATES SHE IS TIRED. DOOR LEFT OPEN BY REQUEST CALL LIGHT AND NEEDED ITEMS IN REACH.
--- NOTE | 2021-08-19 19:35 | NUR ---
CALL LIGHT ANSWERED. WARM BLANKET PROVIDED.
--- NOTE | 2021-08-19 19:50 | NUR ---
BEDSIDE REPORT FROM CHEMO Lovell RN, PT RESTING IN BED EYES CLOSED RR REGULAR 18 BPM, PT HAD REQUESTED TO NOT BE WOKE UP AT SHIFT CHANGE IF SLEEPING.
--- NOTE | 2021-08-19 21:25 | NUR ---
PT VERY ANXIOUS TALKING FAST, STUTTERING, REFUSED VISTRIL AT THIS TIME, ALSO REFUSED TRAZADONE SHE SAID IT GIVES HER NIGHTMARES. SHE IS ALERT AND ORIENTED. SHE SAID SHE WOULD RATHER NOT SLEEP THAN TAKE ANYTHING TO SLEEP AND HAVE NIGHTMARES.
--- NOTE | 2021-08-19 22:39 | NUR ---
PT CALLED, REQUESTED BATHROOM. MOHITKER USED, AGAIN, PT STATED THAT SHE WAS GETTING BETTER, THIS RN FINDS THAT PT IS LESS UNSTEADY USING IT, AND ISN'T NEEDING TO GRAB RIOS, DOOR, COUNTERS TO WALK. BACK TO BED, WANTED TO CONTINUE TO VISIT, HOWEVER, THIS RN EXCUSED SELF, PT WAVED GOODBYE.
--- NOTE | 2021-08-20 01:07 | NUR ---
PATIENT CALLED. 1 PA. ORTIZ. WALKED TO [facility] AND BACK TO BED. PATIENT C/O COLD ROOM. PATIENT WANTED THE ROOM TEMP TO THE HIGHEST. TEMP IS NOW 74 FROM 70. WARM BLANKET PROVIDED. NO OTHER NEEDS AT THIS TIME. CALL LIGHT AND SIDE TABLE WITHIN REACH.
--- NOTE | 2021-08-20 02:39 | NUR ---
PT RESTING IN BED ALERT, SHE REPORTS SHE HAS NOT BEEN ABLE TO SLEEP, SHE SAID "I WONT BE ABLE TO SLEEP WITH MY MOUTH SO DRY" PT WATCHING TV. PT HAS NO COMPLAINT OF PAIN AT THIS TIME. ASSESSMENT COMPLETE, NO NEW CONCERNS
--- NOTE | 2021-08-20 03:09 | NUR ---
SBA. PATIENT WAS UP TO THE BATHROOM. PATIENT IS BACK IN BED. NO OTHER NEEDS AT THIS TIME.
--- NOTE | 2021-08-20 03:57 | NUR ---
PT HAS NOT SLEPT OVER SHIFT, SHE REFUSED TRAZODONE AND VISTRIL OVER SHIFT, SHE HAS CALLED FREQUENTLY TO USE BATHROOM TO VOID AND TO TALK WITH STAFF. SHE REPROTS SHE IS ANXIOUS BUT DOES NOT WANT ANY MEDICATIONS FOR THIS. HER CELLULITIS IS IMPROVING, REDNESS RECEDING FROM OUTLINE. BLE WRAPPED BY .
--- NOTE | 2021-08-20 04:11 | NUR ---
CALL LIGHT ANSWERED, pt UP SBA WITH HEMIWALKER. pt STEADY ON FEET AND BACK TO BED. NO ADDITIONAL NEEDS, CALL LIGHT IN REACH.
--- NOTE | 2021-08-20 04:51 | NUR ---
SBA PATIENT IS BACK IN BED. WARM BLANKET PROVIDED.
--- NOTE | 2021-08-20 05:13 | NUR ---
PT REQUESTED PAIN MEDICATION FOR GENERALIZED PAIN. THIS RN INTO ROOM , PT RESTIGN IN BED EYES CLOSED RR REGULAR 18 BPM, NO DISTESS NOTED, SNORING NOTED. PT ALERT TO NAME
--- NOTE | 2021-08-20 06:30 | NUR ---
BREAKFAST ORDERED. PATIENT IS UP IN THE CHAIR. COFFEE PROVIDED. CALL LIGHT AND SIDE TABLE WITHIN REACH.
--- NOTE | 2021-08-20 07:41 | NUR ---
Report received from Yessy ENCARNACION. Pt provided with nicotine patch, attempted to console as patient is generally disagreeable this morning. No further needs at this time. Call light in reach.
[2021-08-20] MEDS ORDERED: WARFARIN SODIUM5 MG (08:47)
[2021-08-20] MEDS ORDERED: WARFARIN SODIUM5 MG PO (08:47)
[2021-08-20] MEDS ORDERED: FAMOTIDINE20 MG PO (09:17)
--- NOTE | 2021-08-20 09:20 | NUR ---
Scheduled medications administered, VSS, and IV ABX infusing. Assessment complete. Pt ambulates x2 to BR with SBA using hemiwalker, oral care complete independently. Extensive education regarding medication administration and pt is agreeable currently. Call light in reach.
--- NOTE | 2021-08-20 10:53 | NUR ---
Rounded on patient who is resting in bed with eyes closed, even an dunlabored respirations, no needs identified at this time.
--- NOTE | 2021-08-20 11:46 | NUR ---
Call light answered, pt requests assistance to use BR. Pt states "feeling over-tired" and states "my head is swimming". Fresh water given, emesis bag in hand, assisted to reposition, warm blankets provided, this RN sat with patient and reassured, she states "feeling better now". Call light in reach.
--- NOTE | 2021-08-20 12:07 | NUR ---
DAVID BARRON IN WORKING WITH PT-PT SAID SHE DID NOT WANT THE DRY PRESS OPERATOR TO VISIT AT THIS TIME. WILL CHECK LATER
--- NOTE | 2021-08-20 13:16 | NUR ---
PT USED BRIANNA WALKER TO AMBULATE TO BATHROOM. PT IS A STBY ASSIST. PT PERFORMS HER OWN VENKAT CARE W/WIPES. PARTIAL LINEN CHANGE ON BED/CHAIR. SHE IS SITTING UP IN HER CHAIR WITH TABLES AND CALL LIGHT IN REACH. RT IN ROOM FOR TREATMENTS. NO OTHER REQUESTS AT THIS TIME.
--- NOTE | 2021-08-20 14:00 | NUR ---
INTO SEE PATIENT, PATIENT SITTING UP IN CHAIR. PLEASE SEE CASE MANAGEMENT ASSESSMENT FOR FURTHER INFORMATION. PATIENT STATES HER SON VADIM, WHO LIVES IN [place] HAS BEEN ATTEMPTING TO FIND HER A CAREGIVER OR "SOMEONE TO CHECK IN ON HER." SHE STATES THAT HE HAS HAD DIFFICULTY FINDING ANY HELP. PATIENT STATES THAT SHE HAS HAD DIFFICULTIES GETTING AN APPOINTMENT WITH HER PCP LATELY AND THAT IS THE CAUSE FOR HER ADMISSION. ASKED PATIENT IF SHE HAD GIVEN ANY FURTHER THOUGHT TO [facility] PLACEMENT. PATIENT STATES "NO I WILL NOT DO THAT." "IF I CAN'T LIVE IN MY HOUSE WELL THEN I DON'T KNOW WHAT I WILL DO." ASKED PATIENT FOR PERMISSION TO CONTACT HER SON VADIM TO ASSIST WITH OBTAINING A CAREGIVER, PATIENT AGREES. NO FURTHER QUESTIONS OR CONCERNS FROM PATIENT AT THIS TIME.
--- NOTE | 2021-08-20 14:55 | NUR ---
Scheduled medications and IV ABX infused WNL. Pt ambulates to BR for large BM. VSS, A+O, I/Os charted. Pt back to bed and assisted with repositioning. Fresh ice water provided. All belongings and call light in reach.
--- NOTE | 2021-08-20 16:58 | NUR ---
Scheduled medications administered and tele DC'd per order. Pt states no further needs at this time
--- NOTE | 2021-08-20 18:28 | NUR ---
PATIENT SITTING UP IN BED WATCHING TV. VITALS AND I&O'S CHARTED. CALL LIGHT IN REACH. NO FURTHER NEEDS AT THIS TIME.
--- NOTE | 2021-08-20 19:45 | NUR ---
PT. CALLED [facility] REQUESTING WARM BLANKET. THIS WAS PROVIDED. CALL LIGHT LEFT WITHIN REACH. NO OTHER IMMEDIATE NEEDS AT THIS TIME.
--- NOTE | 2021-08-20 19:55 | NUR ---
REPORT RECEIVED FROM DAY SHIFT RN. PT LYING IN BED ALERT AND ORIENTED. DENIES NEEDS AT THIS TIME. WHITE BOARD UPDATED. CALL LIGHT IN REACH.
--- NOTE | 2021-08-20 21:45 | NUR ---
PT BED ALARM SOUNDING, ASSISTED PT TO BATHROOM, THEN UP INTO HER RECLINER CHAIR PER HER CHOICE. ALL PERSONAL SUPPLIES WITHIN REACH.
--- NOTE | 2021-08-20 22:15 | NUR ---
EVENING ASSESSMENT COMPLETE. SCHEDULED MEDS ADMIN PER EMAR. IV IN RIGHT FOREARM LEAKING. IV DC'D WNL. THIS RN WITH TWO FAILED IV ATTEMPTS. RN VALVE TESTER WILL TRY WHEN AVAILABLE. PT WITH RIGHT LOWER LEG IN SARA WRAP. CMS INTACT. PT TO BED WITH BLE ELEVATED. FRESH WATER PROVIDED. DENIES QUESTIONS OR CONCERNS. CALL LIGHT IN REACH.
--- NOTE | 2021-08-21 00:15 | NUR ---
PARTY PLAN DEMONSTRATOR RN IN TO START 24G IN RIGHT HAND WITH TWO ATTEMPTS. IV ABX INFUSED THROUGH SLOW PUSH BY PARTY PLAN DEMONSTRATOR RN. PT JEN WELL.
--- NOTE | 2021-08-21 02:00 | NUR ---
BATHROOM LIGHT ANSWERED. ASSISTED BACK TO BED. NO OTHER NEEDS AT THIS TIME.
--- NOTE | 2021-08-21 03:16 | NUR ---
ROUNDING ON PT. PT AWAKE IN BED. MINIMAL SBA WITH BRIANNA WALKER TO BR TO VOID 200 ML CLEAR YELLOW URINE. GAIT STEADY. PT ABLE TO DO OWN VENKAT CARE. BACK TO BED, JEN WELL. RLE SARA WRAP REPOSITIONED DUE TO WRINKLES. BLE ELEVATED IN BED. PT DENIES PAIN. FRESH WATER PROVIDED. CALL LIGHT IN REACH.
--- NOTE | 2021-08-21 04:57 | NUR ---
PATIENT GOT UP TO USE THE BATHROOM WITH HEMIWALKER SBA. PATIENT IS BACK IN BED. V/S AND I&O'S TAKEN AND CHARTED. NO OTHER NEEDS AT THIS TIME.
--- NOTE | 2021-08-21 06:00 | NUR ---
PT AWAKE IN BED DRINKING COFFEE. SCHEDULED MEDS ADMIN PER EMAR. PT DENIES NEEDS. CALL LIGHT IN REACH.
--- NOTE | 2021-08-21 07:16 | NUR ---
Report received from Yaneli ENCARNACION. Pt resting in bed, awake and conversational with RNs. No needs stated at this time. Call light in reach, will continue plan of care.
--- NOTE | 2021-08-21 07:25 | NUR ---
PATIENT TO CHAIR FROM BATHROOM, SBA HEMIWALKER. WARM BLANKET GIVEN. CALL LIGHT IN REACH. NO FURTHER NEEDS AT THIS TIME.
--- NOTE | 2021-08-21 09:10 | NUR ---
Scheduled medications administered and assessment complete. Pt ambulates to SBA with hemiwalker to void. IV ABX infusing. Pt agreeable this am to plan of care and medications. Breakfast tray cleared.
--- NOTE | 2021-08-21 13:09 | NUR ---
PT SITTING IN CHAIR-HAD JUST VISITED WITH DR ESPINOSA. PT ADMITTED BEING A LITTLE DISCOURAGED. RECOMMENDS SHE STAY LONGER-SHE TRUSTS DR ESPINOSA AND WILL STAY. PT SAID IT WOULD BE MUCH EASIER IF SHE COULD JUST SLEEP. CAN'T SEEM TO GET ANY SLEEP. PT ASKED IF SHE COULD TRY THE CHAIR-I WILL PASS ON TO RN. PT WOULD LIKE VISIT FROM TEACHER LEARNING DISABLED TODAY, WILL MAKE HAPPEN. PRAYER WITH PT AND WILL FOLLOW
--- NOTE | 2021-08-21 14:26 | NUR ---
THIS RN IN TO SEE PATIENT FOR CASE MANAGEMENT NEEDS. PATIENT SAYS SHE HAS BEEN TALKING TO HER SON (VADIM) IN [place]. PER PATIENT TEREZA HAS BEEN TELLING THE PATIENT THEY NEED TO GET HER SOME IN HOME HELP. PER PATIENT SHE IS WILLING TO TAKE ANY HELP HER SON IS WILLING TO HELP HER SET UP. AT THIS TIME. PATIENT IS NOT NEEDING WOUND CARE OR PT AFTER DISCHARGE. THIS RN CALLED THE SON VADIM GOLDMAN AT #[phone]. CALL WENT TO A VOICEMAIL THAT IDENTIFIED THE PHONE BELONING TO THE SON. LEFT A MESSAGE FOR SON TO CALL CM BACK AT [phone], SO THAT CM CAN FAX HIM THE WEBSITE FOR NEW EMPLOYER TO ACCESS STATE WORKERS AND THE FAMILY [employer] INFORMATION WITH CONTACT AND PRICES FOR [facility]. CM WILL AWAIT A CALL BACK FROM VADIM GOLDMAN.
--- NOTE | 2021-08-21 16:40 | NUR ---
PATIENT YELLING AND ANGRY BECAUSE SHE DID NOT FEEL HER RIGHT LEG DRESSING WAS BEING ADDRESSED, SO PATIENT PULLED IT OFF ON HER OWN AND CAUSED IT TO BLEED. THIS RN IN AND CLEANED THE CELLULITIS SITE WITH WOUND CLEANSER, LIBRALLY APPLIED ANTIBIOTIC OINTMENT TO THE AIR, THEN GAUZE, KERLIX, AND THEN WENT TO PUT THE SARA WRAP ON. PATIENT REFUSED TO LET ME PUT THE SARA WRAP ON OVER HER RIGHT LOWER LEG DRESSING UNTIL I ALSO WASHED HER RIGHT FOOT WELL. FOOT WASHED AND RLE SARA WRAP APPLIED. PM MEDS GIVEN. IV FLUSHED 10ML NS WNL. PATIENT HAS NO OTHER CARE NEEDS AT THIS TIME. CALL LIGHT IN REACH. PATIENT SITTING UP IN THE BEDSIDE ARMCHAIR.
--- NOTE | 2021-08-21 16:50 | NUR ---
THIS RN IN TALKING WITH PATIENT ABOUT OPTIONS FOR HOME CAREGIVERS AND THAT I HAD LEFT A MESSAGE FOR HER SON VADIM TO CALL BACK FOR INFORMATION. PATIENT THEN CALLED HER SON ON HER PHONE AND HANDED IT TO ME. THIS RN DISCUSSED THE PLAN FOR PATIENT AT PA, AND THAT PATIENT HAD NO SKILLED NEEDS AT THIS TIME AND THAT ANY CAREGIVERS HE AND THE PATIENT THOUGHT SHE MAY NEED WOULD BE PRIVATE PAY. MR. GOLDMAN INFORMED THIS RN THAT HE ALREADY HAD AN APPOINTMENT SCHEDULED WITH [facility] TO BE AT PATIENT'S HOME AT 11:30AM ON Friday08/23/21 FOR A HOME NEEDS EVALUATION LONG THE PATIENT WAS DC'D TO HOME BY THEN. PATIENT'S SON DENIED ANY OTHER NEEDS AT THIS TIME. AND EM FROM INFORMED OF THIS APPOINTMENT FOR FRIDAY.
--- NOTE | 2021-08-21 19:56 | NUR ---
REPORT RECEIVED FROM DAY SHIFT RN. PT LYING IN BED ALERT AND ORIENTED. DENIES NEEDS. WHITE BOARD UPDATED. CALL LIGHT IN REACH.
--- NOTE | 2021-08-21 22:35 | NUR ---
EVENING ASSESSMENT COMPLETE. SCHEDULED MEDS ADMIN PER EMAR. PT DENIES PAIN OR NAUSEA. RLE DRESSING IN PLACE. REDNESS AND EDEMA NOTED BILAT. ASSISTED PT TO RECLINER TO ELEVATE FEET. FRESH WATER PROVIDED. PT DENIES QUESTIONS OR CONCERNS. CALL LIGHT IN REACH.
--- NOTE | 2021-08-21 23:32 | NUR ---
PT IN BED AWAKE. IV ABX INFUSED WNL. PT WAS UP TO BR INDEPENDENT. REMINDED TO CALL FOR ASSIST. PT AGREEABLE TO CALL FOR TOILETING. FRESH WATER PROVIDED. PT DENIES FURTHER NEEDS. CALL LIGHT IN REACH.
--- NOTE | 2021-08-22 00:33 | NUR ---
PT RESTING IN BED WITH EYES CLOSED. RESPIRATIONS EVEN. CALL LIGHT IN REACH.
--- NOTE | 2021-08-22 03:10 | NUR ---
CALL LIGHT ANSWERED. PT REQUESTING PEANUT BUTTER AND CRACKERS. PROVIDED. PT EXPLAINS HOW SHE WOKE IN A PANIC AND "CAN'T SPEND ANOTHER NIGHT HERE." THERAPEUTIC COMMUNICATION PROVIDED. NO FURTHER NEEDS. CALL LIGHT IN REACH.
--- NOTE | 2021-08-22 04:06 | NUR ---
PATIENT WAS UP TO THE BATHROOM SBA AND BACK TO BED. PATIENT IS TALKATIVE. PATIENT C/O OUT OF BREATHE. ADVICED MINIMIZED TALKING WHILE TRYING TO CATCH BACK BREATH. PATIENT STATED WANT PAIN MEDS OR TYLENOL AND NICOTINE LOZENGE. PRIMARY RN NOTIFIED.
--- NOTE | 2021-08-22 04:19 | NUR ---
PT C/O HEADACHE PAIN. PRN FOR PAIN ADMIN PER EMAR. PT REPORTS FEELING SOB. REFUSES BREATHING TX DUE TO TX "CAUSING DRY MOUTH." VS WNL. SpO2 98-100% ON RA. RESPIRATIONS EVEN. PT VERY TALKATIVE. NO FURTHER NEEDS. CALL LIGHT IN REACH.
--- NOTE | 2021-08-22 06:53 | NUR ---
CALL LIGHT ANSWERED. IN ROOM TO PROVIDE FRESH WATER AND SCHEDULED MEDS. PT ANXIOUS TO BE DISCHARGED. DISCUSSED POC AND THAT MD WILL MAKE ROUNDS TODAY. PT RECEPTIVE. PT REPORTS HEADACHE IMPROVED. NO FURTHER NEEDS. CALL LIGHT IN REACH.
--- NOTE | 2021-08-22 08:30 | NUR ---
REPORT RECEIVED FROM NIGHT RN AND PT. CARE RESUMED. PT IS ALERT AND ORIENTED. SHE IS ANXIOUS AND STATED SEVERAL TIMES THAT SHE IS "GETTING OUT OF HERE TODAY". RIGHT LEG DRESSING CHANGED. LEG IS SLIGHTLY WEEPY WITH SMAL OPEN BLISTERS AND SCABS. +1 EDEMA PRESENT. RLE HAS +2 PITTING EDEMA. LEGS ELEVATED. PT. IS AMBULATING WITH HEMIWALKER WITH SBA. MEDS ADMIN. AND DISCUSSED POC. LEFT RESTING WITH CALL LIGHT IN [facility].
[2021-08-22] MEDS ORDERED: DILTIAZEM 24HR180 M1 PO (09:59)
[2021-08-22] MEDS ORDERED: CEPHALEXIN500 M1 PO (10:01)
[2021-08-22] MEDS ORDERED: BUDESONIDE0.5 MG/2 M INH (10:11)
--- NOTE | 2021-08-22 11:53 | NUR ---
ALL DISCHARGE INSTRUCTIONS REVIEWED WITH PT. AND QUESTIONS ANSWERED. RIGHT LEG REDRESSED AND PT. ASSISTED. SUPPLIES GIVEN FOR CARE AT HOME. AWAITING PHARMACY AND CARE RIDE FOR DC.
== END 2021-08-22 12:41 | disposition home or self-care (01) | DRG 603 ==
LOC: ED 08:01 → CCU 09:26 → MS 09:26
PROVIDERS: ADMIT Internal Medicine; ATTEND Internal Medicine
DX: L03.115 Cellulitis of right lower limb (principal); E22.2 Syndrome of inappropriate secretion of antidiuretic hormone; Z20.822 Contact with and (suspected) exposure to COVID-19; I87.2 Venous insufficiency (chronic) (peripheral); J44.9 Chronic obstructive pulmonary disease, unspecified; E03.9 Hypothyroidism, unspecified; E78.5 Hyperlipidemia, unspecified; H40.9 Unspecified glaucoma; I48.0 Paroxysmal atrial fibrillation; G47.00 Insomnia, unspecified; F41.9 Anxiety disorder, unspecified; F17.210 Nicotine dependence, cigarettes, uncomplicated; Z96.642 Presence of left artificial hip joint; Z95.0 Presence of cardiac pacemaker; Z90.710 Acquired absence of both cervix and uterus; Z88.7 Allergy status to serum and vaccine; Z88.8 Allergy status to other drugs, medicaments and biological substances; Z79.01 Long term (current) use of anticoagulants; Z79.52 Long term (current) use of systemic steroids; Z79.899 Other long term (current) drug therapy
CPT/HCPCS: 36415; 80048; 80053; 80202; 83735; 83880; 85025; 85610; 87502; 94640; 94667; 94668; 94760; A9270; C9803; J0690; J3370; J7050; J7060; U0003

== ENCOUNTER 2021-08-25 11:04 | Emergency (ER) | payer MEDICARE, OTHER ==
[~2021-08-25] VITALS: Ht 157.5 cm; Wt 71.5 kg
[~2021-08-25 11:04] MED LIST changes: +BUDESONIDE0.5 MG/2 M INH; +CEPHALEXIN500 M1 PO; +DILTIAZEM 24HR180 M1 PO; +FAMOTIDINE20 MG PO; +WARFARIN SODIUM5 MG
--- OUTSIDE RECORDS SUMMARY | 2021-08-25 11:12 | XMS ---
PreManage Notification: ALLEN GOLDMAN Security Spares Scheduler Events No recent Security Events currently on file CRITERIA MET - 6 ED Visits in 6 Months - [facility] - 2 Visits in 30 Days CARE PROVIDERS AKILAH MORRISON Physician Four H Agent 07/29/2018-Current PHONE: Unknown Deepak has no Care Guidelines for this patient. Care History Medical/Surgical 07/29/2018 [facility] - PATIENT HAS A FOLLOW UP APT [...] FURTHER CONTACT. E.D. VISIT COUNT (12 MO.) 7 [facility] TOTAL 7 NOTE: Visits indicate total known visits. ED/UCC VISIT TRACKING (12 MO.) 08/25/2021 11:05 [facility] TYPE: Emergency COMPLAINT: - SHORTNESS OF BREATH 08/18/2021 08:02 [facility] [place] TYPE: Emergency [...] obstructive pulmonary disease with (acute) exacerbation - rodent exterminator (current) use of anticoagulants - Essential (primary) hypertension - Nicotine dependence, unspecified, uncomplicated - Other buttermaker helper (current) drug therapy 07/06/2021 17:50 [facility] TYPE: Emergency COMPLAINT: - SWOOLEN LEGS 07/02/2021 21:06 [facility] [place] TYPE: Emergency COMPLAINT: - DIFFICULTY BREATHING 06/27/2021 07:59 [facility] TYPE: Emergency COMPLAINT: - DIFFICULTY BREATHING INPATIENT VISIT TRACKING (12 MO.) 08/18/2021 09:26 [facility] TYPE: Medical Surgical COMPLAINT: - RLE CELLULITIS DIAGNOSES: - Acquired absence of both cervix and uterus - Insomnia, unspecified - Chronic obstructive pulmonary disease, unspecified - rodent exterminator (current) use of systemic steroids - Unspecified glaucoma - Presence of cardiac pacemaker - USP (current) use of systemic steroids - Venous insufficiency (chronic) (peripheral) - Paroxysmal atrial fibrillation - Anxiety disorder, unspecified - Insomnia, unspecified - Presence of left artificial hip joint - rodent exterminator (current) use of anticoagulants - Anxiety disorder, unspecified - Other usp (current) drug therapy - Presence of cardiac pacemaker - Nicotine dependence, cigarettes, uncomplicated - Paroxysmal atrial fibrillation - Chronic obstructive pulmonary disease with (acute) lower respiratory infection - Hyperlipidemia, unspecified - Venous insufficiency (chronic) (peripheral) - Chronic obstructive pulmonary disease, unspecified - Hypothyroidism, unspecified - Hyperlipidemia, unspecified - Contact with and (suspected) exposure to COVID-19 - Allergy status to serum and vaccine - Allergy status to other drugs, medicaments and biological substances - Presence of left artificial hip joint - Acquired absence of both cervix and uterus - Nicotine dependence, cigarettes, uncomplicated - Unspecified glaucoma - rodent exterminator (current) use of anticoagulants - Cellulitis of right lower limb - Allergy status to other drugs, medicaments and biological substances - Syndrome of inappropriate secretion of antidiuretic hormone - Other usp (current) drug therapy - Syndrome of inappropriate secretion of antidiuretic hormone - Hypothyroidism, unspecified - Allergy status to serum and vaccine 07/06/2021 19:30 [facility] TYPE: Medical Surgical COMPLAINT: - SEVERE HYPONATREMIA DIAGNOSES: - Chronic obstructive pulmonary disease, unspecified - Heart failure, unspecified - rodent exterminator (current) use of systemic steroids - rodent exterminator (current) use of anticoagulants - Acquired absence of both cervix and uterus - Localized edema - Hypothyroidism, unspecified - Presence of left artificial hip joint - Hyperlipidemia, unspecified - Paroxysmal atrial fibrillation - Presence of cardiac pacemaker - Hypo-osmolality and hyponatremia - Other buttermaker helper (current) drug therapy - Hypertensive heart disease [...] to COVID-19 - Shortness of breath - rodent exterminator (current) use of anticoagulants - Essential (primary) [...] DIAGNOSES: - Other specified hypothyroidism - Other buttermaker helper (current) drug therapy - Hyperlipidemia, unspecified - Contact with and (suspected) exposure to COVID-19 - Unspecified glaucoma - Chronic atrial fibrillation, unspecified - Dysphagia, oropharyngeal phase - rodent exterminator (current) use of anticoagulants - Hyperlipidemia, unspecified - Other usp (current) drug therapy - Presence of cardiac [...] and hyponatremia - Chronic atrial fibrillation, unspecified [email or web address]
[2021-08-25] MEDS ORDERED: PREDNISONE20 MG PO (13:19)
== END 2021-08-25 13:35 | disposition home or self-care (01) ==
LOC: ED 11:04
DX: J44.9 Chronic obstructive pulmonary disease, unspecified (principal); I10 Essential (primary) hypertension; F17.200 Nicotine dependence, unspecified, uncomplicated; Z95.0 Presence of cardiac pacemaker; Z88.8 Allergy status to other drugs, medicaments and biological substances; Z88.7 Allergy status to serum and vaccine; Z79.899 Other long term (current) drug therapy; Z79.01 Long term (current) use of anticoagulants; Z20.822 Contact with and (suspected) exposure to COVID-19
CPT/HCPCS: 36415; 71045; 80053; 83735; 83880; 84484; 85025; 85610; 87502; 93005; 93010; A9270; C9803; J7512; U0003

== ENCOUNTER 2021-09-12 02:58 | Emergency (ER) | payer MEDICARE, OTHER ==
[~2021-09-12] VITALS: Ht 157.5 cm; Wt 73.4 kg
--- OUTSIDE RECORDS SUMMARY | 2021-09-12 03:06 | XMS ---
PreManage Notification: ALLEN GOLDMAN Security Machine Etcher Events No recent Security Events currently on file CRITERIA MET - [facility] - 2 Visits in 30 Days - 6 ED Visits in 6 Months CARE PROVIDERS AKILAH MORRISON Physician Sociology Research Assistant 07/29/2018-Current PHONE: Unknown Deepak has no Care Guidelines for this patient. Care History Medical/Surgical 07/29/2018 [facility] - PATIENT HAS A FOLLOW UP [...] FURTHER CONTACT. E.D. VISIT COUNT (12 MO.) 8 [facility] TOTAL 8 NOTE: Visits indicate total known visits. ED/UCC VISIT TRACKING (12 MO.) 09/12/2021 02:59 [facility] TYPE: Emergency COMPLAINT: - FALL 08/25/2021 11:05 [facility] TYPE: Emergency COMPLAINT: - SHORTNESS OF BREATH DIAGNOSES: - Presence of cardiac pacemaker - Allergy status to serum and vaccine - Essential (primary) hypertension - Allergy status to other drugs, medicaments and biological substances - Contact with and (suspected) exposure to COVID-19 - ocean transportation intermediary (current) use of anticoagulants - Shortness of breath - Nicotine dependence, unspecified, uncomplicated - Other watermelon inspector (current) drug therapy - Chronic obstructive pulmonary disease, unspecified 08/18/2021 08:02 [facility] TYPE: Emergency COMPLAINT: - HOMER 08/13/2021 09:44 [facility] [place] TYPE: Emergency COMPLAINT: - DIFFICULTY BREATHING, [...] obstructive pulmonary disease with (acute) exacerbation - jail (current) use of anticoagulants - Essential (primary) hypertension - Nicotine dependence, unspecified, uncomplicated - Other penitentiary (current) drug therapy 07/06/2021 17:50 [facility] [...] - Chronic obstructive pulmonary disease, unspecified - jail (current) use of systemic steroids - Unspecified glaucoma - Presence of cardiac pacemaker - jail (current) use of systemic steroids - Venous insufficiency (chronic) (peripheral) - Paroxysmal atrial fibrillation - Anxiety disorder, unspecified - Insomnia, unspecified - Presence of left artificial hip joint - jail (current) use of anticoagulants - Anxiety disorder, unspecified - Other watermelon inspector (current) drug therapy - Presence of cardiac [...] dependence, cigarettes, uncomplicated - Unspecified glaucoma - jail (current) use of anticoagulants - Cellulitis of right lower limb - Allergy status to other drugs, medicaments and biological substances - Syndrome of inappropriate secretion of antidiuretic hormone - Other watermelon inspector (current) drug therapy - Syndrome of inappropriate secretion of antidiuretic hormone - Hypothyroidism, unspecified - Allergy status to serum and vaccine 07/06/2021 19:[address] [facility] TYPE: Medical Surgical COMPLAINT: - SEVERE HYPONATREMIA DIAGNOSES: - Chronic obstructive pulmonary disease, unspecified - Heart failure, unspecified - jail (current) use of systemic steroids - ocean transportation intermediary (current) use of anticoagulants - Acquired absence of both cervix and uterus - Localized edema - Hypothyroidism, unspecified - Presence of left artificial hip joint - Hyperlipidemia, unspecified - Paroxysmal atrial fibrillation - Presence of cardiac pacemaker - Hypo-osmolality and hyponatremia - Other penitentiary (current) drug therapy - Hypertensive heart disease [...] to COVID-19 - Shortness of breath - jail (current) use of anticoagulants - Essential (primary) hypertension - Chronic atrial fibrillation, unspecified - Hypothyroidism, unspecified - Unspecified chronic bronchitis - Presence of cardiac pacemaker - Allergy status to serum and vaccine - Hypo-osmolality and hyponatremia - Syndrome of inappropriate secretion of antidiuretic hormone - Nicotine dependence, cigarettes, uncomplicated - Hyperlipidemia, unspecified 06/27/2021 10:34 [facility] TYPE: Medical Surgical COMPLAINT: - PROBABLE ACUTE SYSTOLIC CHF DIAGNOSES: - Other specified hypothyroidism - Other penitentiary (current) drug therapy - Hyperlipidemia, unspecified - Contact with and (suspected) exposure to COVID-19 - Unspecified glaucoma - Chronic atrial fibrillation, unspecified - Dysphagia, oropharyngeal phase - jail (current) use of anticoagulants - Hyperlipidemia, unspecified - Other watermelon inspector (current) drug therapy - Presence of cardiac pacemaker - Hypertensive chronic kidney disease with stage 1 through stage 4 chronic kidney disease, or unspecified chronic kidney disease - Allergy status to serum and vaccine - jail (current) use of anticoagulants - Acquired absence [...] and hyponatremia - Chronic atrial fibrillation, unspecified [email or web address]
[2021-09-12] MEDS ORDERED: HYDROCODON-ACE1 EA10 PO (04:21)
[2021-09-17] MEDS ORDERED: FUROSEMIDE20 MG PO (16:55)
[2021-09-17] MEDS ORDERED: K-TAB ER20 MEQ PO (17:05)
== END 2021-09-12 04:50 | disposition home or self-care (01) ==
LOC: ED 02:58
DX: S32.019A Unspecified fracture of first lumbar vertebra, initial encounter for closed fracture (principal); M16.11 Unilateral primary osteoarthritis, right hip; I10 Essential (primary) hypertension; J44.9 Chronic obstructive pulmonary disease, unspecified; F17.200 Nicotine dependence, unspecified, uncomplicated; Z88.8 Allergy status to other drugs, medicaments and biological substances; Z88.7 Allergy status to serum and vaccine; Z79.899 Other long term (current) drug therapy; Z79.01 Long term (current) use of anticoagulants; Z79.51 Long term (current) use of inhaled steroids; Z95.0 Presence of cardiac pacemaker; W18.30XA Fall on same level, unspecified, initial encounter
CPT/HCPCS: 72100; 73502; 99283-25; A9270